=== PATIENT | female | born 1965 | race Caucasian/White ===

== ENCOUNTER → 2018-04-13 | Day surgery (SDC) | payer BC ==
[~2018-04-13] MED LIST: ALFUZOSIN HCL10 MG PO; ATORVASTATIN CA10 MG PO; GLIMEPIRIDE2 MG PO; INSULIN REGULAR, HUMAN 100 UNIT/1 ML 3ML VIAL ONE; METFORMIN HCL1000 M1 PO; PROPOFOL IV EMULSION 10 MG/ML 50 ML VIAL ONE; SLOW RELEASE IRON PO; VITAMIN D3 PO; WOMEN'S DAILY1 EACH PO
--- OUTSIDE RECORDS SUMMARY | 2018-04-13 08:31 | XMS REPORT | Summary of Care ---
Author Author [facility] Organization [facility] Address Unknown Phone Unavailable Encounter NENA Leiva(LAUREN) [id number] Date(s): 12/04/14 - 12/04/14 [facility] [address] [place] [address]- Discharge Diagnosis: Closed high fibular trimalleolar fracture of ankle Discharge Disposition: Home Attending Physician: Jaime Gonzalez MD Vital Signs Most recent to 1 2 oldest [Reference Range]: Height 160.02 cm (12/04/14 12:35 AM) Most recent to 1 2 oldest [Reference Range]: Temperature Oral 97.8 DegF 97.8 DegF [96.4-99.1 DegF] (12/04/14 2:46 AM) (12/04/14 12:35 AM) Most recent to 1 2 oldest [Reference Range]: Blood Pressure 110/69 mmHg 109/73 mmHg [90-140/60-90 mmHg] (12/04/14 2:46 AM) (12/04/14 12:35 AM) Most recent to 1 2 oldest [Reference Range]: Respiratory Rate 21 BRMIN 48 BRMIN [14-20 BRMIN] *HI* *HI* (12/04/14 2:46 AM) (12/04/14 12:35 AM) Most recent to 1 2 oldest [Reference Range]: Peripheral Pulse 76 bpm 76 bpm Rate [60-100 bpm] (12/04/14 2:46 AM) (12/04/14 12:35 AM) Most recent to 1 2 oldest [Reference Range]: Weight 77.273 kg (12/04/14 12:35 AM) Most recent to 1 2 oldest [Reference Range]: Body Mass Index 30.18 m2 (12/04/14 12:35 AM) Problem List Condition Effective Dates Status Health Status Informant Cervical Resolved cancer(Confirmed) Diabetes(Confirmed) Resolved Hyperlipidemia(Confi Resolved rmed) Allergies, Adverse Reactions, Alerts Substance Reaction Severity Status NKDA Active Medications Hall 5/325 oral tablet 1 tab, Route: PO, Drug Form: TAB, Dosing Weight 77.273, kg, ONCE, Start date: 0:40:00, Stop date: 12/04/14 0:40:00 Notes: (Same as: Hall 325/5) Do not exceed 4gm/day of acetaminophen. Start Date: 12/04/14 Stop Date: 12/04/14 Status: Completed Results No data available for this section Immunizations No data available for this section Procedures Procedure Date Related Diagnosis Body Site Cancer chemotherapy regimen Contact radiation therapy procedure TL - Tubal ligation Social History Social History Type Response Substance Abuse Use: None. Sexual Sexually active: No. Exercise Exercise duration: 0. Employment/School Status: Employed. Alcohol Never Smoking Status Never smoker; Exposure to Tobacco Smoke None; Cigarette Smoking Last 365 Days No; Reg Smoking Cessation Counseling No Assessment and Plan No data available for this section
--- OUTSIDE RECORDS SUMMARY | 2018-04-13 08:31 | XMS REPORT | Continuity of Care Document ---
Author Author [facility] Interface Address Unknown Phone Unavailable Problems Problem Status Onset Date Classification Date Reported Comments Source EYE PAIN OR INJURY Active 11/09/[address] [facility] ANEMIA, HEMATURIA ,SHORTNESS OF BREATH, Active 10/02/[address] [facility] ANEMIA, SHORTNESS OF BREATH, HEMATURIA Active 10/02/[address] [facility] BLOOD IN URINE Active 10/02/[address] [facility] Discharge Diagnosis: Closed high fibular trimalleolar fracture of ankle 12/04/2014 12/07/[address] [facility] LEFT ANKLE INJURY Active 12/04/[address] [facility] Cervical cancer Resolved Problem 10/09/[address] [facility] Diabetes Resolved Problem 10/09/[address] [facility] Hyperlipidemia Resolved Problem 10/09/[address] [facility] Type II diabetes mellitus poorly controlled Active Problem 10/09/[address] [facility] ANEMIA, UNSPECIFIED Active [facility] HEMATURIA, UNSPECIFIED Active [facility] TYPE 2 DIABETES MELLITUS WITH HYPERGLYCE Active [facility] SHORTNESS OF BREATH Active [facility] Medications Medication Details Route Status Patient Instructions Ordering Provider Order Date Source Slow Release Iron 45 mg oral tablet, extended release 45 mg=1 tab, PO, Daily, # 30 tab, 1 Refill(s), given to patient Active 10/06/2017 [facility] Cefuroxime 500 MG Oral Tablet [Ceftin] 500 mg=1 tab, PO, BID, X 10 day, # 20 tab, 0 Refill(s), given to patient Active 10/06/2017 [facility] atorvastatin 10 mg oral tablet 10 mg=1 tab, PO, Bedtime, # 30 tab, 0 Refill(s), given to patient Active 10/06/2017 [facility] Metformin hydrochloride 1000 MG Oral Tablet 1,000 mg=1 tab, PO, BID-Meals, # 6 tab, 0 Refill(s), given to patient Active 10/06/[address] [facility] Insulin Lispro 10 unit, 0.1 mL, Route: SUB-Q, Drug form: SOLN, TID-Before Meals, Dosing Weight 79.545, kg, PRN Blood Glucose Results, Start date: 10/04/17 23:22:00 CDT, Duration: 30 day, Stop date: 11/03/17 23:21:0 0 CDTNotes: (Same as: Humalog ) Roll in palms of hands gently; Do not shake `vigorously. "Single Patient Use Only " WASTE: F/P - Black; E - Municipal Trash Bin Stable for 28 days at room temperature. Expires in days from Date No Longer Active 10/05/[address] [facility] ketAMINE (ANES) Route: IV, Drug form: INJ, ONCE, Stop date: 10/04/17 9:42:00 CDT Inactive 10/04/[address] [facility] ondansetron (ANES) Route: IV, Drug form: INJ, ONCE, Stop date: 10/04/17 9:42:00 CDT Inactive 10/04/[address] [facility] propofol (ANES) Route: IV, Drug form: INJ, ONCE, Stop date: 10/04/17 9:37:00 CDT Inactive 10/04/[address] [facility] fentaNYL (ANES) Route: IV, Drug form: INJ, ONCE, Stop date: 10/04/17 9:37:00 CDT Inactive 10/04/[address] [facility] midazolam (ANES) Route: IV, Drug form: SOLN, ONCE, Stop date: 10/04/17 9:37:00 CDT Inactive 10/04/[address] [facility] Sodium Chloride 0.9% IV (ANES) 1000 mL Route: IV, Total Volume: 1,000, Start date: 10/04/17 8:48:00 CDT, Stop date: 10/04/17 9:48:00 CDT Inactive 10/04/[address] [facility] Ceftriaxone 1 gm, Route: IVP, [id number], Dosing Weight 73.182, kg, Start date: 10/04/17 3:00:00 CDT, Duration: 7 day, Stop date: 10/10/17 3:00:00 CDT, ABX Indication: Urinary Tract InfectionNotes: (Same As: Rocephin). Use with 100 mL NS and infuse over 30 min MEDICATION WASTE Product Size: 1000 mg Product Wasted: ___ mg No Longer Active 10/04/[address] [facility] Insulin Glargine 100 UNT/ML Injectable Solution [Lantus] 20 unit, 0.2 mL, Route: SUB-Q, Drug form: SOLN, Bedtime, Dosing Weight 73.182, kg, Start date: 10/03/17 21:00:00 CDT, Duration: 30 day, Stop date: 11/01/17 21:00:00 CDTNotes: (Same as: Lantus) Do not hold insulin without contacting prescriber WASTE: F/P - Black; E - Municipal Trash Bin "single patient use only" Inactive 10/04/[address] [facility] Lovastatin 10 mg, Route: PO, Drug form: TAB, Bedtime, Dosing Weight 73.182, kg, Start date: 10/03/17 21:00:00 CDT, Duration: 30 day, Stop date: 11/01/17 21:00:00 CDT Inactive 10/04/[address] [facility] Lipitor 10 mg, 1 tab, Route: PO, Drug form: TAB, Bedtime, Start date: 10/03/17 21:00:00 CDT, Duration: 30 day, Stop date: 11/01/17 21:00:00 CDTNotes: (Same As: Lipitor) No Longer Active 10/04/[address] [facility] lovastatin 10 mg oral tablet 10 mg=1 tab, PO, Bedtime, # 30 tab, 0 Refill(s) No Longer Active 10/03/[address] [facility] Metformin hydrochloride 1000 MG Oral Tablet 1,000 mg=1 tab, PO, BID-Meals, # 30 tab, 0 Refill(s) No Longer Active 10/03/[address] [facility] Sodium Chloride 0.9% IV 250 mL, IV, 250 ml/hr, PRN, PRN Blood Transfusion, Start date: 10/03/17 9:09:00 CDT, Duration: 1, 250 ml No Longer Active 10/03/[address] [facility] Famotidine 20 MG Oral Tablet 20 mg, 1 tab, Route: PO, Drug form: TAB, BID, Dosing Weight 73.182, kg, Start date: 10/03/17 9:00:00 CDT, Duration: 30 day, Stop date: 11/01/17 17:00:00 CDTNotes: (Same as: Pepcid) No Longer Active 10/03/2017 [facility] Insulin Glargine 100 UNT/ML Injectable Solution [Lantus] 15 unit, 0.15 mL, Route: SUB-Q, Drug form: SOLN, Daily, Dosing Weight 73.182, kg, Start date: 10/03/17 9:00:00 CDT, Duration: 30 day, Stop date: 11/01/17 9:00:00 CDTNotes: (Same as: Lantus) Do not hold insulin without contacting prescriber WASTE: F/P - Black; E - [employer] Trash Bin "single patient use only" Inactive 10/03/2017 [facility] tramadol hydrochloride 50 MG Oral Tablet 50 mg, 1 tab, Route: PO, Drug form: TAB, Q6H, Dosing Weight 73.182, kg, PRN Pain Score 1-3, Start date: 10/03/17 8:53:00 CDT, Duration: 30 day, Stop date: 11/02/17 8:52:00 CDTNotes: Not to exceed 400mg/day. (Same As: Ultram) No Longer Active 10/03/2017 [facility] Acetaminophen 325 mg, 1 tab, Route: PO, Drug form: TAB, Q4H, Dosing Weight 73.182, kg, PRN Pain 1-3/Temp > 100.4 F, Start date: 10/03/17 8:53:00 CDT, Duration: 30 day, Stop date: 11/02/17 8:52:00 CDTNotes: Do not exceed 4 gm/day. (Same as: Tylenol) No Longer Active 10/03/2017 [facility] NS 1,000 mL 1,000 mL, Rate: 75 ml/hr, Infuse over: 13.3 hr, Route: IV, Dosing Weight 73.182 kg, Total Volume: 1,000, Start date: 10/03/17 8:51:00 CDT, Duration: 30 day, Stop date: 11/02/17 8:50:00 CDT, 1.81, m2 No Longer Active 10/03/2017 [facility] Insulin Lispro 1 unit, 0.01 mL, Route: SUB-Q, Drug form: SOLN, Bedtime, Dosing Weight 73.182, kg, PRN Blood Glucose Results, Start date: 10/03/17 8:48:00 CDT, Duration: 30 day, Stop date: 11/02/17 8:47:00 CDTNotes: (Same as: Humalog ) Roll in palms of hands gently; Do not shake `vigorously. "Single Patient Use Only " WASTE: F/P - Black; E - Municipal Trash Bin Stable for 28 days at room temperature. Expires in days from Date No Longer Active 10/03/[address] [facility] Glucagon 1 mg, Route: IM, Drug form: PDR/INJ, PRN, Dosing Weight 73.182, kg, PRN Blood Glucose Results, Start date: 10/03/17 8:48:00 CDT, Duration: 30 day, Stop date: 11/02/17 8:47:00 CDT No Longer Active 10/03/[address] [facility] Dextrose 50% Syringe 25 gm, 50 mL, Route: IVP, Drug Form: INJ, Dosing Weight 73.182, kg, PRN, PRN Blood Glucose Results, Start date: 10/03/17 8:48:00 CDT, Duration: 30 day, Stop date: 11/02/17 8:47:00 CDT No Longer Active 10/03/[address] [facility] Insulin Lispro 1 unit, 0.01 mL, Route: SUB-Q, Drug form: SOLN, Sliding Scale, Dosing Weight 73.182, kg, PRN Blood Glucose Results, Start date: 10/03/17 6:15:00 CDT, Duration: 30 day, Stop date: 11/02/17 6:14:00 CDT Notes: (Same as: Humalog ) Roll in palms of hands gently; Do not shake `vigorously. "Single Patient Use Only " WASTE: F/P - Black; E - Municipal Trash Bin Stable for 28 days at room temperature. Expires in days from Date Inactive 10/03/2017 [facility] Glucagon 1 mg, Route: IM, Drug form: PDR/INJ, PRN, Dosing Weight 73.182, kg, PRN Blood Glucose Results, Start date: 10/03/17 6:15:00 CDT, Duration: 30 day, Stop date: 11/02/17 6:14:00 CDT Inactive 10/03/2017 [facility] Dextrose 50% Syringe 12.5 gm, 25 mL, Route: IVP, Drug Form: INJ, Dosing Weight 73.182, kg, PRN, PRN Blood Glucose Results, Start date: 10/03/17 6:15:00 CDT, Duration: 30 day, Stop date: 11/02/17 6:14:00 CDT Inactive 10/03/2017 [facility] Ondansetron 4 mg, 2 mL, Route: IVP, Drug form: INJ, Q6H, Dosing Weight 73.182, kg, PRN Nausea & Vomiting, Start date: 10/03/17 6:04:00 CDT, Duration: 30 day, Stop date: 11/02/17 6:03:00 CDTNotes: (Same as: Kumar) MEDICATION WASTE Product Size: 4 mg Product Wasted: ___ mg No Longer Active 10/03/[address] [facility] Morphine 2 mg, 0.5 mL, Route: IVP, Drug form: SOLN, Q4H, Dosing Weight 73.182, kg, PRN Pain Score 7-10, Start date: 10/03/17 6:04:00 CDT, Duration: 30 day, Stop date: 11/02/17 6:03:00 CDTNotes: (Same as:MORPhine Sulfate) No Longer Active 10/03/[address] [facility] Docusate 100 mg, 1 cap, Route: PO, Drug form: CAP, BID, Dosing Weight 73.182, kg, PRN as needed for constipation, Start date: 10/03/17 6:04:00 CDT, Duration: 30 day, Stop date: 11/02/17 6:03:00 CDTNotes: (Same as: Colace) (Do Not Crush) No Longer Active 10/03/2017 [facility] Acetaminophen 325 MG / Hydrocodone Bitartrate 5 MG Oral Tablet 1 tab, Route: PO, Drug Form: TAB, Dosing Weight 73.182, kg, Q4H, PRN Pain Score 4-6, Start date: 10/03/17 6:04:00 CDT, Duration: 30 day, Stop date: 11/02/17 6:03:00 CDTNotes: (Same as: [place] 325/5) Do not exceed 4gm/day of acetaminophen. Inactive 10/03/2017 [facility] Acetaminophen 650 mg, 2 tab, Route: PO, Drug form: TAB, Q4H, Dosing Weight 73.182, kg, PRN Pain 1-3/Temp > 100.4 F, Start date: 10/03/17 6:04:00 CDT, Duration: 30 day, Stop date: 11/02/17 6:03:00 CDTNotes: Do not exceed 4 gm/day. (Same as: Tylenol) Inactive 10/03/[address] [facility] Omnipaque 300 100 mL, Route: IV, Dosing Weight 73.182, kg, ONCE, Start date: 10/03/17 3:10:00 CDT, Stop date: 10/03/17 3:10:00 CDT Inactive 10/03/2017 [facility] Rocephin 1 gm, Route: IVPB, Drug form: PDR/INJ, ONCE, Dosing Weight 73.182, kg, Priority: STAT, Start date: 10/03/17 3:04:00 CDT, Stop date: 10/03/17 3:04:00 CDT, ABX Indication: Urinary Tract Infection Inactive 10/03/[address] [facility] Saline Flush 0.9% 10 mL, Route: IVP, Drug Form: INJ, Dosing Weight 73.182, kg, PRN, PRN Line Flush, Start date: 10/03/17 0:36:00 CDT, Duration: 30 day, Stop date: 11/02/17 0:35:00 CDTNotes: Same as: BD Posiflush Sterile No Longer Active 10/03/2017 [facility] Acetaminophen 325 MG / Hydrocodone Bitartrate 5 MG Oral Tablet [[place] 5/325] 1 tab, Route: PO, Drug Form: TAB, Dosing Weight 77.273, kg, ONCE, Start date: 12/04/14 0:40:00, Stop date: 12/04/14 0:40:00Notes: (Same as: [place] 325/5) Do not exceed 4gm/day of acetaminophen. Inactive 12/04/2014 [facility] Allergies, Adverse Reactions, Alerts Substance Category Reaction Severity Reaction type Status Date Reported Comments Source Immunizations Immunization Date Given Site Status Last Updated Comments Source Results Order Name Results Value Reference Range Date Interpretation Comments Source HEMATOLOGY RBC 2.34 M/CMM 4.20 - 5.40 10/06/[address] [facility] HEMATOLOGY WBC 3.0 K/CMM 3.7 - 10.4 10/06/[address] [facility] HEMATOLOGY MCV 87.2 fL 80.0 - 98.0 10/06/[address] [facility] HEMATOLOGY MCHC 33.1 g/dL 32.0 - 36.0 10/06/[address] [facility] HEMATOLOGY Hct 20.4 % 36.0 - 48.0 10/06/[address] [facility] HEMATOLOGY Hgb 6.8 g/dL 12.0 - 16.0 10/06/2017 Result Comment: Critical Result(s) called to Danilo Acuna at 10/06/2017 04:42 byJW . Read back OK. [facility] HEMATOLOGY MCH 28.8 pg 27.0 - 31.0 10/06/[address] [facility] HEMATOLOGY RDW 15.1 % 11.5 - 14.5 10/06/[address] [facility] HEMATOLOGY MPV 10.0 fL 7.4 - 10.4 10/06/[address] [facility] HEMATOLOGY Platelet 92 K/CMM 133 - 450 10/06/[address] [facility] HEMATOLOGY Segs 63.8 % 45.0 - 75.0 10/06/[address] [facility] HEMATOLOGY Basophils 0.4 % 0.0 - 1.0 10/06/[address] [facility] HEMATOLOGY Eosinophils 1.4 % 0.0 - 4.0 10/06/[address] [facility] HEMATOLOGY Monocytes 6.9 % 2.0 - 12.0 10/06/[address] [facility] HEMATOLOGY Segs-Bands # 1.9 K/CMM 1.5 - 8.1 10/06/[address] [facility] HEMATOLOGY Lymphocytes 27.5 % 20.0 - 40.0 10/06/[address] [facility] HEMATOLOGY Monocytes # 0.2 K/CMM 0.0 - 0.8 10/06/[address] [facility] HEMATOLOGY Lymphocytes # 0.8 K/CMM 1.0 - 5.5 10/06/[address] [facility] HEMATOLOGY Hct 21.6 % 36.0 - 48.0 10/05/[address] [facility] HEMATOLOGY Hgb 7.1 g/dL 12.0 - 16.0 10/05/[address] [facility] CARDIAC ENZYMES BNP 40 pg/mL <=100 pg/mL 10/05/[address] [facility] CHEM PANEL Procalcitonin Lvl 0.06 ng/mL 0.00 - 0.10 10/05/[address] [facility] CHEM PANEL Lactic Acid Lvl 1.7 mMol/L 0.5 - 2.2 10/05/[address] [facility] CHEM PANEL eGFR 96 mL/min/1.73m2 10/05/2017 Result Comment: The eGFR is calculated using the CKD-EPI formula. In most young, healthy individuals the eGFR will be >90 mL/min/1.73m2. The eGFR declines with age. An eGFR of 60-89 may be normal in some populations, particularly the elderly, for whom the CKD-EPI formula has not been extensively validated. Use of the eGFR is not recommended in the following populations: Individuals with unstable creatinine concentrations, including patients and those with serious co-morbid conditions. Patients with extremes in muscle mass or diet. The data above are obtained from the National Kidney Disease Education Program (NKDEP) which additionally recommends that when the eGFR is used in patients with extremes of body mass index for purposes of drug dosing, the eGFR should be multiplied by the estimated BMI. [facility] CHEM PANEL BUN 8 mg/dL 7 - 22 10/05/[address] [facility] CHEM PANEL Glucose Lvl 187 mg/dL 70 - 99 10/05/[address] [facility] CHEM PANEL AGAP 9.8 meq/L 10.0 - 20.0 10/05/[address] [facility] CHEM PANEL Sodium Lvl 144 meq/L 135 - 145 10/05/[address] [facility] CHEM PANEL Calcium Lvl 7.4 mg/dL 8.5 - 10.5 10/05/[address] [facility] CHEM PANEL Chloride Lvl 111 meq/L 95 - 109 10/05/[address] [facility] CHEM PANEL Potassium Lvl 3.8 meq/L 3.5 - 5.1 10/05/[address] [facility] CHEM PANEL CO2 27 meq/L 24 - 32 10/05/[address] [facility] CHEM PANEL Creatinine Lvl 0.73 mg/dL 0.50 - 1.40 10/05/[address] [facility] CHEM PANEL Uric Acid 3.8 mg/dL 2.5 - 7.0 10/05/[address] [facility] HEMATOLOGY Basophils 0.4 % 0.0 - 1.0 10/05/[address] [facility] HEMATOLOGY Segs-Bands # 2.1 K/CMM 1.5 - 8.1 10/05/[address] [facility] HEMATOLOGY Lymphocytes # 0.9 K/CMM 1.0 - 5.5 10/05/[address] [facility] HEMATOLOGY Monocytes # 0.2 K/CMM 0.0 - 0.8 10/05/[address] [facility] HEMATOLOGY Eosinophils 1.5 % 0.0 - 4.0 10/05/[address] [facility] HEMATOLOGY Segs 63.0 % 45.0 - 75.0 10/05/[address] [facility] HEMATOLOGY Monocytes 6.9 % 2.0 - 12.0 10/05/[address] [facility] HEMATOLOGY Lymphocytes 28.2 % 20.0 - 40.0 10/05/[address] [facility] HEMATOLOGY RBC 2.39 M/CMM 4.20 - 5.40 10/05/[address] [facility] HEMATOLOGY WBC 3.3 K/CMM 3.7 - 10.4 10/05/[address] [facility] HEMATOLOGY Hct 20.6 % 36.0 - 48.0 10/05/[address] [facility] HEMATOLOGY Hgb 6.9 g/dL 12.0 - 16.0 10/05/2017 Result Comment: Critical Result(s) called to Tom Gee at 10/05/2017 05:41 byJW . Read back OK. [facility] HEMATOLOGY MCV 86.2 fL 80.0 - 98.0 10/05/[address] [facility] HEMATOLOGY MCHC 33.4 g/dL 32.0 - 36.0 10/05/[address] [facility] HEMATOLOGY MCH 28.8 pg 27.0 - 31.0 10/05/[address] [facility] HEMATOLOGY Platelet 92 K/CMM 133 - 450 10/05/[address] [facility] HEMATOLOGY RDW 14.8 % 11.5 - 14.5 10/05/[address] [facility] HEMATOLOGY MPV 9.4 fL 7.4 - 10.4 10/05/[address] [facility] HEMATOLOGY PTT 26.4 s 22.9 - 35.8 10/05/[address] [facility] HEMATOLOGY INR 1.16 0.85 - 1.17 10/05/[address] [facility] HEMATOLOGY PT 14.9 s 12.0 - 14.7 10/05/[address] [facility] IMMUNOLOGY C-REACTIVE PROTEIN 7.9 mg/L <=2.9 mg/L 10/05/[address] [facility] IMMUNOLOGY HIV Ag/Ab 4th Gen Negative *NA* (10/05/17 5:10 AM) Negative 10/05/[address] [facility] IMMUNOLOGY Hep C Ab Negative *NA* (10/05/17 5:10 AM) 10/05/[address] [facility] IMMUNOLOGY Hep B Core IgM Negative *NA* (10/05/17 5:10 AM) Negative 10/05/[address] [facility] IMMUNOLOGY Hep Bs Ag Negative *NA* (10/05/17 5:10 AM) Negative 10/05/[address] [facility] IMMUNOLOGY Hep A IgM Negative *NA* (10/05/17 5:10 AM) Negative 10/05/[address] [facility] LIPIDS VLDL 25 10/05/[address] [facility] LIPIDS LDL (Calculated) 63 mg/dL <=99 mg/dL 10/05/[address] [facility] LIPIDS Trig 123 mg/dL <=149 mg/dL 10/05/[address] [facility] LIPIDS Chol 110 mg/dL <=199 mg/dL 10/05/[address] [facility] LIPIDS HDL 22 mg/dL >=61 mg/dL 10/05/[address] [facility] LIPIDS CHD Risk 5.00 3.90 - 5.80 10/05/[address] [facility] SPECIAL CHEMISTRY Hgb A1C 6.3 % <=5.6 % 10/05/[address] [facility] TUMOR MARKERS AFP 4.2 ng/mL 0.0 - 11.0 10/05/[address] [facility] CHEM PANEL Magnesium Lvl 1.8 mg/dL 1.8 - 2.4 10/04/[address] [facility] ELECTROLYTES AGAP 11.6 meq/L 10.0 - 20.0 10/04/[address] [facility] ELECTROLYTES eGFR 102 mL/min/1.73m2 10/04/2017 Result Comment: The eGFR is calculated using the CKD-EPI formula. In most young, healthy individuals the eGFR will be >90 mL/min/1.73m2. The eGFR declines with age. An eGFR of 60-89 may be normal in some populations, particularly the elderly, for whom the CKD-EPI formula has not been extensively validated. Use of the eGFR is not recommended in the following populations: Individuals with unstable creatinine concentrations, including patients and those with serious co-morbid conditions. Patients with extremes in muscle mass or diet. The data above are obtained from the National Kidney Disease Education Program (NKDEP) which additionally recommends that when the eGFR is used in patients with extremes of body mass index for purposes of drug dosing, the eGFR should be multiplied by the estimated BMI. [facility] ELECTROLYTES CO2 24 meq/L 24 - 32 10/04/[address] [facility] ELECTROLYTES Chloride Lvl 110 meq/L 95 - 109 10/04/[address] [facility] ELECTROLYTES Calcium Lvl 7.5 mg/dL 8.5 - 10.5 10/04/[address] [facility] ELECTROLYTES Creatinine Lvl 0.66 mg/dL 0.50 - 1.40 10/04/[address] [facility] ELECTROLYTES Sodium Lvl 142 meq/L 135 - 145 10/04/[address] [facility] ELECTROLYTES Glucose Lvl 252 mg/dL 70 - 99 10/04/[address] [facility] ELECTROLYTES Potassium Lvl 3.6 meq/L 3.5 - 5.1 10/04/[address] [facility] ELECTROLYTES BUN 8 mg/dL 7 - 22 10/04/[address] [facility] HEMATOLOGY Lymphocytes # 1.1 K/CMM 1.0 - 5.5 10/04/[address] [facility] HEMATOLOGY Segs-Bands # 2.2 K/CMM 1.5 - 8.1 10/04/[address] [facility] HEMATOLOGY Monocytes # 0.3 K/CMM 0.0 - 0.8 10/04/[address] [facility] HEMATOLOGY Segs 60.7 % 45.0 - 75.0 10/04/[address] [facility] HEMATOLOGY Monocytes 6.9 % 2.0 - 12.0 10/04/[address] [facility] HEMATOLOGY Lymphocytes 30.6 % 20.0 - 40.0 10/04/[address] [facility] HEMATOLOGY Eosinophils 1.2 % 0.0 - 4.0 10/04/[address] [facility] HEMATOLOGY Basophils 0.6 % 0.0 - 1.0 10/04/[address] [facility] HEMATOLOGY Platelet 106 K/CMM 133 - 450 10/04/[address] [facility] HEMATOLOGY RDW 15.0 % 11.5 - 14.5 10/04/[address] [facility] HEMATOLOGY MPV 9.7 fL 7.4 - 10.4 10/04/[address] [facility] HEMATOLOGY WBC 3.6 K/CMM 3.7 - 10.4 10/04/[address] [facility] HEMATOLOGY MCHC 33.7 g/dL 32.0 - 36.0 10/04/[address] [facility] HEMATOLOGY MCH 28.8 pg 27.0 - 31.0 10/04/2017 [facility] HEMATOLOGY RBC 2.50 M/CMM 4.20 - 5.40 10/04/[address] [facility] HEMATOLOGY MCV 85.6 fL 80.0 - 98.0 10/04/[address] [facility] URINE AND STOOL UA Mucus Moderate /LPF None Seen /LPF 10/04/[address] [facility] URINE AND STOOL UA RBC >182 /HPF 0 - 2 10/04/[address] [facility] URINE AND STOOL UA Bacteria Few /HPF None Seen /HPF 10/04/[address] [facility] URINE AND STOOL UA WBC 6-10 /HPF 0 - 5 10/04/[address] [facility] URINE AND STOOL UA Glucose 150 mg/dL 10/04/[address] [facility] URINE AND STOOL UA Urobilinogen <=1.0 mg/dL 0.1 - 1.0 10/04/[address] [facility] URINE AND STOOL UA Ketones Negative 10/04/[address] [facility] URINE AND STOOL UA Sq Epi None Seen 10/04/[address] [facility] URINE AND STOOL UA Color Anna *ABN* (10/03/17 10:57 PM) Yellow 10/04/[address] [facility] URINE AND STOOL UA Protein >=300 mg/dL Negative mg/dL 10/04/[address] [facility] [facility] URINE AND STOOL UA Spec Grav 1.016 <=1.030 10/04/[address] [facility] URINE AND STOOL UA pH 7.0 5.0 - 8.0 10/04/[address] [facility] URINE AND STOOL UA Turbidity Marked *ABN* (10/03/17 10:57 PM) Clear 10/04/[address] [facility] URINE AND STOOL UA Leuk Est Negative (10/03/17 10:57 PM) Negative 10/04/[address] [facility] URINE AND STOOL UA Blood Large *ABN* (10/03/17 10:57 PM) Negative 10/04/[address] [facility] URINE AND STOOL UA Nitrite Negative (10/03/17 10:57 PM) Negative 10/04/[address] [facility] URINE AND STOOL UA Bili Negative *NA* (10/03/17 10:57 PM) Negative 10/04/[address] [facility] BLOOD BANK RESULTS RBC product Product available 1 (10/03/17 7:55 PM) 10/04/2017 Result Comment: 10/03/2017 20:44 [id number] Called to SHANNA Dorantes at 10/03/2017 20:[address] [facility] ANEMIA STUDY Folate Lvl 17.6 ng/mL >=3.0 ng/mL 10/03/[address] [facility] HEMATOLOGY PTT 26.7 s 22.9 - 35.8 10/03/[address] [facility] HEMATOLOGY INR 1.11 0.85 - 1.17 10/03/[address] [facility] HEMATOLOGY PT 14.3 s 12.0 - 14.7 10/03/[address] [facility] BLOOD BANK RESULTS ABO/Rh A POS 10/03/[address] [facility] BLOOD BANK RESULTS Antibody Scrn Negative (10/03/17 2:16 AM) 10/03/[address] [facility] URINE AND STOOL UA RBC null 0 - 2 10/03/[address] [facility] URINE AND STOOL UA Bacteria Many /HPF None Seen /HPF 10/03/[address] [facility] URINE AND STOOL UA Urobilinogen 2.0 mg/dL 0.1 - 1.0 10/03/[address] [facility] URINE AND STOOL UA Nitrite Negative (10/03/17 2:16 AM) Negative 10/03/[address] [facility] URINE AND STOOL UA Leuk Est Negative (10/03/17 2:16 AM) Negative 10/03/[address] [facility] URINE AND STOOL UA WBC 18 /HPF 0 - 5 10/03/[address] [facility] URINE AND STOOL UA Blood Large *ABN* (10/03/17 2:16 AM) Negative 10/03/[address] [facility] URINE AND STOOL UA Sq Epi None Seen 10/03/[address] [facility] URINE AND STOOL UA Ketones Negative 10/03/[address] [facility] URINE AND STOOL UA Color Red *ABN* (10/03/17 2:16 AM) Yellow 10/03/[address] [facility] URINE AND STOOL UA Turbidity Marked *ABN* (10/03/17 2:16 AM) Clear 10/03/[address] [facility] URINE AND STOOL UA Spec Grav 1.017 <=1.030 10/03/[address] [facility] URINE AND STOOL UA Glucose 500 mg/dL Negative mg/dL 10/03/[address] [facility] URINE AND STOOL UA Bili Negative *NA* (10/03/17 2:16 AM) Negative 10/03/[address] [facility] URINE AND STOOL UA pH 6.0 5.0 - 8.0 10/03/[address] [facility] URINE AND STOOL UA Protein >=300 mg/dL Negative mg/dL 10/03/[address] [facility] Culture: Urine <10,000 CFU/mL Skin Kia 10/03/[address] [facility] BLOOD BANK RESULTS RBC product Product available 2 (10/03/17 2:07 AM) 10/03/2017 Result Comment: 10/03/2017 03:44 [id number] Called Cristian Rangel [facility] ANEMIA STUDY Ferritin Lvl 20 ng/mL 5 - 204 10/03/[address] [facility] ANEMIA STUDY % Satur Fe 5 % 12 - 57 10/03/[address] [facility] ANEMIA STUDY UIBC 397 ug/dl 110 - 370 10/03/[address] [facility] ANEMIA STUDY TIBC 419 ug/dl 228 - 428 10/03/[address] [facility] ANEMIA STUDY Iron 22 ug/dl 30 - 160 10/03/[address] [facility] ANEMIA STUDY Vitamin B12 Lvl 186 pg/mL 254 - 1320 10/03/[address] [facility] CARDIAC ENZYMES Troponin-I null 0.00 - 0.40 10/03/[address] [facility] CARDIAC ENZYMES CK MB null 0.5 - 3.6 10/03/[address] [facility] CARDIAC ENZYMES Total CK 53 unit/L 12 - 191 10/03/[address] [facility] CARDIAC ENZYMES CK MB Index null 0.0 - 2.5 10/03/[address] [facility] CHEM PANEL A/G Ratio 0.6 0.7 - 1.6 10/03/[address] [facility] CHEM PANEL AGAP 14.1 meq/L 10.0 - 20.0 10/03/[address] [facility] CHEM PANEL eGFR 76 mL/min/1.73m2 10/03/2017 Result Comment: The eGFR is calculated using the CKD-EPI formula. In most young, healthy individuals the eGFR will be >90 mL/min/1.73m2. The eGFR declines with age. An eGFR of 60-89 may be normal in some populations, particularly the elderly, for whom the CKD-EPI formula has not been extensively validated. Use of the eGFR is not recommended in the following populations: Individuals with unstable creatinine concentrations, including patients and those with serious co-morbid conditions. Patients with extremes in muscle mass or diet. The data above are obtained from the National Kidney Disease Education Program (NKDEP) which additionally recommends that when the eGFR is used in patients with extremes of body mass index for purposes of drug dosing, the eGFR should be multiplied by the estimated BMI. [facility] CHEM PANEL Globulin 3.6 g/dL 2.7 - 4.2 10/03/[address] [facility] CHEM PANEL B/C Ratio 10 6 - 25 10/03/[address] [facility] CHEM PANEL Alk Phos 96 unit/L 39 - 136 10/03/[address] [facility] CHEM PANEL Bili Total 0.4 mg/dL 0.2 - 1.3 10/03/[address] [facility] CHEM PANEL Sodium Lvl 141 meq/L 135 - 145 10/03/[address] [facility] CHEM PANEL Potassium Lvl 4.1 meq/L 3.5 - 5.1 10/03/[address] [facility] CHEM PANEL Chloride Lvl 108 meq/L 95 - 109 10/03/[address] [facility] CHEM PANEL Creatinine Lvl 0.88 mg/dL 0.50 - 1.40 10/03/[address] [facility] CHEM PANEL Total Protein 5.9 g/dL 6.4 - 8.4 10/03/[address] [facility] CHEM PANEL CO2 23 meq/L 24 - 32 10/03/[address] [facility] CHEM PANEL Albumin Lvl 2.3 g/dL 3.5 - 5.0 10/03/[address] [facility] CHEM PANEL ALT 11 unit/L 0 - 65 10/03/[address] [facility] CHEM PANEL Calcium Lvl 7.9 mg/dL 8.5 - 10.5 10/03/[address] [facility] CHEM PANEL AST 14 unit/L 0 - 37 10/03/[address] [facility] CHEM PANEL BUN 9 mg/dL 7 - 22 10/03/[address] [facility] CHEM PANEL Glucose Lvl 316 mg/dL 70 - 99 10/03/[address] [facility] HEMATOLOGY Hypochrom 1+ (10/03/17 12:42 AM) None Seen 10/03/[address] [facility] HEMATOLOGY Plt Morph Normal (10/03/17 12:42 AM) 10/03/[address] [facility] HEMATOLOGY RBC Morph Normal (10/03/17 12:42 AM) 10/03/[address] [facility] HEMATOLOGY Polychrom slight 10/03/[address] [facility] Abdomen/Pelvis w IV contrast CT Abdomen/Pelvis w IV contrast CT CT ABDOMEN AND PELVIS WITH CONTRAST DATED 10/03/2017. CLINICAL INDICATION: Hematuria. Prior history of cervical cancer. COMPARISON: None. TECHNIQUE: A CT of the abdomen and pelvis was performed using helical images from the thoracic outlet through the pubic symphysis after the intravenous administration of 100cc Omnipaque 300. The study was ordered without bowel contrast. Sagittal and coronal reconstructions were performed. CT imaging performed at this location utilizes radiation dose optimization techniques which include one or more of the following: -Automated exposure control -Adjustment of the mA and/or kV according to patient size -Use of iterative reconstruction technique CT Radiation Dose DLP 1314 mGy-cm FINDINGS: SOLID ORGANS: The liver demonstrates diffuse parenchymal heterogeneity and surface lobularity compatible with cirrhosis. No hypervascular hepatic masses are identified. The spleen is enlarged with a craniocaudal span of 15.4 cm. The splenic parenchyma enhances homogeneously. The splenic and portal veins are patent however are enlarged. No CT abnormalities of the pancreas, adrenal glands or kidneys are identified. There is no evidence of renal collecting system obstruction or calcified renal collecting system stone. Note is made of a left renal cortical cyst. BILIARY: The gallbladder is normally distended. No significant biliary ductal dilatation is detected. BOWEL: Bowel assessment is limited by the absence of bowel contrast. No small bowel dilatation is identified to suggest obstruction. The appendix is visualized and is not acutely inflamed. A couple of small sigmoid diverticula are identified without CT evidence of acute diverticulitis. PERITONEUM: No free intraperitoneal air or significant free intraperitoneal fluid. RETROPERITONEUM: The abdominal aorta enhances normally without evidence of aneurysm or dissection. No retroperitoneal mass or adenopathy. PELVIS: The uterine lumen is distended and contains a fluid/fluid level. No gross abnormalities of the ovaries are identified. The bladder wall appears thickened for a degree of bladder distention. Radiodense material within the dependent portion the bladder likely represents blood products given the history of hematuria. Injection of the presacral fat is noted and likely post therapeutic given the history of radiation therapy. LOWER CHEST: The lung bases appear clear of acute disease. ADDITIONAL COMMENTS: None. IMPRESSION: 1. CT findings compatible with cirrhosis of the liver. The accompanying finding of splenomegaly suggests portal hypertension. 2. The uterine lumen is distended and contains a fluid/fluid level. Given the history of cervical cancer, this finding could be the result of cervical stenosis with retained menstrual fluid. 3. The bladder wall appears thickened for the degree of bladder distention. The differential diagnosis would include cystitis, post radiation change and uroepithelial neoplasm. Again, the radiodense material within the dependent portion the bladder lumen likely represents blood products given the history of hematuria. SL:131 10/03/2017 - - Read by: Blas Barrera MD Dictated Date/time: 10/03/17 03:37 Electronically Signed by: Blas Barrera MD 10/03/17 03:49 FINAL REPORT [facility] Chest 1view DX Chest 1view DX Clinical Indication: - chest pain; Comparison: FINDINGS: The cardiomediastinal silhouette is normal in size. No significant pleural effusions are seen. The bony structures are intact. No evidence for pneumothorax. IMPRESSION: 1. No acute disease in the chest. 10/03/2017 - - Read by: Felix العراقي MD Dictated Date/time: 10/03/17 01:04 Electronically Signed by: Felix العراقي MD 10/03/17 01:04 FINAL REPORT [facility] Ankle 3 views DX Ankle 3 views DX LEFT ANKLE, 3 VIEWS. INDICATION: Left ankle pain post fall. There is a transverse fracture of the medial malleolus, a long vertical fracture of the posterior malleolus and a comminuted fracture of the distal fibula approximately 6 cm proximal to the ankle joint. There is slight lateral displacement of the talus with respect to the tibial plafond. Moderate size plantar calcaneal spur is noted. IMPRESSION: Trimalleolar fracture subluxation. SL: 12 12/04/2014 - - Read by: Carmelo Roy MD Dictated Date/time: 12/04/14 01:20 Electronically Signed by: Carmelo Roy MD 12/04/14 01:23 FINAL REPORT [facility] Vital Signs Vital Sign Value Date Comments Source Temperature Oral (F) 98 F 10/07/2017 [facility] Respitory Rate 16 10/07/2017 [facility] Heart Rate 76 10/07/2017 [facility] Systolic (mm Hg) 129 10/07/2017 [facility] Diastolic (mm Hg) 79 10/07/2017 [facility] Systolic (mm Hg) 107 10/06/2017 [facility] Diastolic (mm Hg) 78 10/06/2017 [facility] Temperature Oral (F) 98.7 F 10/06/2017 [facility] Respitory Rate 18 10/06/2017 [facility] Heart Rate 72 10/06/2017 [facility] Systolic (mm Hg) 107 10/06/2017 [facility] Diastolic (mm Hg) 66 10/06/2017 [facility] Respitory Rate 18 10/06/2017 [facility] Heart Rate 69 10/06/2017 [facility] Temperature Oral (F) 98.3 F 10/06/2017 [facility] Height 157.48 cm 10/04/2017 [facility] BMI Calculated 32.07 10/04/2017 [facility] Weight 79.545 10/04/2017 [facility] BMI Calculated 29.51 10/03/2017 [facility] Height 157.48 cm 10/03/2017 [facility] Weight 73.182 10/03/2017 [facility] Systolic (mm Hg) 110 12/04/2014 [facility] Diastolic (mm Hg) 69 12/04/2014 [facility] Respitory Rate 21 12/04/2014 [facility] Temperature Oral (F) 97.8 F 12/04/2014 [facility] Heart Rate 76 12/04/2014 [facility] Weight 77.273 12/04/2014 [facility] Temperature Oral (F) 97.8 F 12/04/2014 [facility] Respitory Rate 48 12/04/2014 [facility] Height 160.02 cm 12/04/2014 [facility] Heart Rate 76 12/04/2014 [facility] Systolic (mm Hg) 109 12/04/2014 [facility] Diastolic (mm Hg) 73 12/04/2014 [facility] BMI Calculated 30.18 12/04/[address] [facility] Encounters Location Location Details Encounter Type Encounter Number Reason For Visit Attending Provider ADM Date DC Date Status Source [facility] [id number] Jaime Gonzalez 12/04/2014 12/04/2014 [facility] Inpatient [id number] Dawson Fausti 10/03/2017 10/07/[address] [facility] Outpatient [id number] BEATRIZ MONTENEGRO 10/27/2017 Active [facility] Outpatient [id number] BEATRIZ MONTENEGRO 12/04/2017 Active [facility] Outpatient [id number] BEATRIZ MONTENEGRO 04/02/2018 Active [facility] Procedures Procedure Code Date Perfomer Comments Source TL - Tubal ligation [id number] 03/16/[address] [facility] Cancer chemotherapy regimen [id number] [facility] Contact radiation therapy procedure [id number] [facility] TL - Tubal ligation [id number] [facility] Cancer chemotherapy regimen<sup>1</sup> [id number] [facility]
--- OUTSIDE RECORDS SUMMARY | 2018-04-13 08:32 | XMS REPORT | Summary of Care ---
Author Author [facility] Organization [facility] Address Unknown Phone Unavailable Encounter [facility](LAUREN) [id number] Date(s): 10/02/17 - 10/06/17 [facility] [address] [place] [address]- Discharge Disposition: Home or Self Care Attending Physician: Dawson Pérez MD Admitting Physician: Dawson Pérez MD Vital Signs 1 2 3 Most recent to oldest [Reference Range]: 157.48 cm (10/03/17 10:44 PM) 157.48 cm (10/02/17 11:58 PM) Height 98 DegF (10/06/17 7:02 PM) 98.7 DegF (10/06/17 4:26 PM) 98.3 DegF (10/06/17 11:00 AM) Temperature Oral [96.4-99.1 DegF] 129/79 mmHg (10/06/17 7:02 PM) 107/78 mmHg (10/06/17 4:26 PM) 107/66 mmHg (10/06/17 11:00 AM) Blood Pressure [90-140/60-90 mmHg] 16 BRMIN (10/06/17 7:02 PM) 18 BRMIN (10/06/17 4:26 PM) 18 BRMIN (10/06/17 11:00 AM) Respiratory Rate [14-20 BRMIN] 76 bpm (10/06/17 7:02 PM) 72 bpm (10/06/17 4:26 PM) 69 bpm (10/06/17 11:00 AM) Peripheral Pulse Rate [60-100 bpm] 79.545 kg (10/03/17 10:44 PM) 73.182 kg (10/02/17 11:58 PM) Weight 32.07 m2 (10/03/17 10:44 PM) 29.51 m2 (10/02/17 11:58 PM) Body Mass Index Problem List Condition Effective Dates Status Health Status Informant Cervical Resolved cancer(Confirmed) Diabetes(Confirmed) Resolved Hyperlipidemia(Confi Resolved rmed) Type II diabetes Active mellitus poorly controlled(Confirmed ) Allergies, Adverse Reactions, Alerts Substance Reaction Severity Status NKDA Active Medications acetaminophen 650 mg, 2 tab, Route: PO, Drug form: TAB, Q4H, Dosing Weight 73.182, kg, PRN Thierry n 1-3/Temp > 100.4 F, Start date: 10/03/17 6:04:00 CDT, Duration: 30 day, Stop date: 11/02/17 6:03:00 CDT Notes: Do not exceed 4 gm/day. (Same as: Tylenol) Start Date: 10/03/17 Stop Date: 10/03/17 Status: Discontinued acetaminophen 325 mg, 1 tab, Route: PO, Drug form: TAB, Q4H, Dosing Weight 73.182, kg, PRN Thierry n 1-3/Temp > 100.4 F, Start date: 10/03/17 8:53:00 CDT, Duration: 30 day, Stop date: 11/02/17 8:52:00 CDT Notes: Do not exceed 4 gm/day. (Same as: Tylenol) Start Date: 10/03/17 Stop Date: 10/06/17 Status: Discontinued acetaminophen-hydrocodone 325 mg-5 mg oral tablet 1 tab, Route: PO, Drug Form: TAB, Dosing Weight 73.182, kg, Q4H, PRN Pain Score 4-6, Start date: 10/03/17 6:04:00 CDT, Duration: 30 day, Stop date: 11/02/17 6:0 3:00 CDT Notes: (Same as: Shedd 325/5) Do not exceed 4gm/day of acetaminophen. Start Date: 10/03/17 Stop Date: 10/03/17 Status: Discontinued atorvastatin 10 mg oral tablet 10 mg=1 tab, PO, Bedtime, # 30 tab, 0 Refill(s), given to patient Start Date: 10/06/17 Status: Ordered Ceftin 500 mg oral tablet 500 mg=1 tab, PO, BID, X 10 day, # 20 tab, 0 Refill(s), given to patient Start Date: 10/06/17 Stop Date: 10/16/17 Status: Ordered cefTRIAXone + sterile water 10 mL 1 gm, Route: IVP, [id number], Dosing Weight 73.182, kg, Start date: 10/04/17 3:00:0 0 CDT, Duration: 7 day, Stop date: 10/10/17 3:00:00 CDT, ABX Indication: Urinary Tract Infection Notes: (Same As: Rocephin).Use with 100 mL NS and infuse over 30 min MEDICA TION WASTE Product Size: 1000 mgProduct Wasted: ___ mg Start Date: 10/04/17 Stop Date: 10/06/17 Status: Discontinued Dextrose 50% Syringe 12.5 gm, 25 mL, Route: IVP, Drug Form: INJ, Dosing Weight 73.182, kg, PRN, PRN B lood Glucose Results, Start date: 10/03/17 6:15:00 CDT, Duration: 30 day, Stop d ate: 11/02/17 6:14:00 CDT Start Date: 10/03/17 Stop Date: 10/03/17 Status: Discontinued Dextrose 50% Syringe 25 gm, 50 mL, Route: IVP, Drug Form: INJ, Dosing Weight 73.182, kg, PRN, PRN Blo od Glucose Results, Start date: 10/03/17 6:15:00 CDT, Duration: 30 day, Stop alejandra e: 11/02/17 6:14:00 CDT Start Date: 10/03/17 Stop Date: 10/03/17 Status: Discontinued Dextrose 50% Syringe 25 gm, 50 mL, Route: IVP, Drug Form: INJ, Dosing Weight 73.182, kg, PRN, PRN Blo od Glucose Results, Start date: 10/03/17 8:48:00 CDT, Duration: 30 day, Stop alejandra e: 11/02/17 8:47:00 CDT Start Date: 10/03/17 Stop Date: 10/06/17 Status: Discontinued Dextrose 50% Syringe 12.5 gm, 25 mL, Route: IVP, Drug Form: INJ, Dosing Weight 73.182, kg, PRN, PRN B lood Glucose Results, Start date: 10/03/17 8:48:00 CDT, Duration: 30 day, Stop d ate: 11/02/17 8:47:00 CDT Start Date: 10/03/17 Stop Date: 10/06/17 Status: Discontinued docusate 100 mg, 1 cap, Route: PO, Drug form: CAP, BID, Dosing Weight 73.182, kg, PRN as needed for constipation, Start date: 10/03/17 6:04:00 CDT, Duration: 30 day, Sto p date: 11/02/17 6:03:00 CDT Notes: (Same as: Colace) (Do Not Crush) Start Date: 10/03/17 Stop Date: 10/06/17 Status: Discontinued famotidine 20 mg oral tablet 20 mg, 1 tab, Route: PO, Drug form: TAB, BID, Dosing Weight 73.182, kg, Start da te: 10/03/17 9:00:00 CDT, Duration: 30 day, Stop date: 11/01/17 17:00:00 CDT Notes: (Same as: Pepcid) Start Date: 10/03/17 Stop Date: 10/06/17 Status: Discontinued fentaNYL (ANES) Route: IV, Drug form: INJ, ONCE, Stop date: 10/04/17 9:37:00 CDT Start Date: 10/04/17 Stop Date: 10/04/17 Status: Completed glucagon 1 mg, Route: IM, Drug form: PDR/INJ, PRN, Dosing Weight 73.182, kg, PRN Blood Gl ucose Results, Start date: 10/03/17 6:15:00 CDT, Duration: 30 day, Stop date: 6:14:00 CDT Start Date: 10/03/17 Stop Date: 10/03/17 Status: Discontinued glucagon 1 mg, Route: IM, Drug form: PDR/INJ, PRN, Dosing Weight 73.182, kg, PRN Blood Gl ucose Results, Start date: 10/03/17 8:48:00 CDT, Duration: 30 day, Stop date: 8:47:00 CDT Start Date: 10/03/17 Stop Date: 10/06/17 Status: Discontinued insulin lispro 10 unit, 0.1 mL, Route: SUB-Q, Drug form: SOLN, TID-Before Meals, Dosing Weight 79.545, kg, PRN Blood Glucose Results, Start date: 10/04/17 23:22:00 CDT, Durati on: 30 day, Stop date: 11/03/17 23:21:00 CDT Notes: (Same as: Humalog ) Roll in palms of hands gently; Do not shake `vigorou sly. "Single Patient Use Only " WASTE: F/P - Black; E - [facility] [address] able for 28 days at room temperature.Expires in days from Da te Start Date: 10/04/17 Stop Date: 10/06/17 Status: Discontinued insulin lispro 2 unit, 0.02 mL, Route: SUB-Q, Drug form: SOLN, TID-Before Meals, Dosing Weight 79.545, kg, PRN Blood Glucose Results, Start date: 10/04/17 23:22:00 CDT, Durati on: 30 day, Stop date: 11/03/17 23:21:00 CDT Notes: (Same as: Humalog ) Roll in palms of hands gently; Do not shake `vigorou sly. "Single Patient Use Only " WASTE: F/P - Black; E - [facility] [address] able for 28 days at room temperature.Expires in days from Da te Start Date: 10/04/17 Stop Date: 10/06/17 Status: Discontinued insulin lispro 6 unit, 0.06 mL, Route: SUB-Q, Drug form: SOLN, TID-Before Meals, Dosing Weight 79.545, kg, PRN Blood Glucose Results, Start date: 10/04/17 23:22:00 CDT, Durati on: 30 day, Stop date: 11/03/17 23:21:00 CDT Notes: (Same as: Humalog ) Roll in palms of hands gently; Do not shake `vigorou sly. "Single Patient Use Only " WASTE: F/P - Black; E - [facility] [address] able for 28 days at room temperature.Expires in days from Da te Start Date: 10/04/17 Stop Date: 10/06/17 Status: Discontinued insulin lispro 4 unit, 0.04 mL, Route: SUB-Q, Drug form: SOLN, TID-Before Meals, Dosing Weight 79.545, kg, PRN Blood Glucose Results, Start date: 10/04/17 23:22:00 CDT, Durati on: 30 day, Stop date: 11/03/17 23:21:00 CDT Notes: (Same as: Humalog ) Roll in palms of hands gently; Do not shake `vigorou sly. "Single Patient Use Only " WASTE: F/P - Black; E - [facility] [address] able for 28 days at room temperature.Expires in days from Da te Start Date: 10/04/17 Stop Date: 10/06/17 Status: Discontinued insulin lispro 8 unit, 0.08 mL, Route: SUB-Q, Drug form: SOLN, TID-Before Meals, Dosing Weight 79.545, kg, PRN Blood Glucose Results, Start date: 10/04/17 23:22:00 CDT, Durati on: 30 day, Stop date: 11/03/17 23:21:00 CDT Notes: (Same as: Humalog ) Roll in palms of hands gently; Do not shake `vigorou sly. "Single Patient Use Only " WASTE: F/P - Black; E - [facility] [address] able for 28 days at room temperature.Expires in days from Da te Start Date: 10/04/17 Stop Date: 10/06/17 Status: Discontinued insulin lispro 1 unit, 0.01 mL, Route: SUB-Q, Drug form: SOLN, Sliding Scale, Dosing Weight 73. 182, kg, PRN Blood Glucose Results, Start date: 10/03/17 6:15:00 CDT, Duration: 30 day, Stop date: 11/02/17 6:14:00 CDT Notes: (Same as: Humalog ) Roll in palms of hands gently; Do not shake `vigorou sly. "Single Patient Use Only " WASTE: F/P - Black; E - [facility] [address] able for 28 days at room temperature.Expires in days from Da te Start Date: 10/03/17 Stop Date: 10/03/17 Status: Discontinued insulin lispro 2 unit, 0.02 mL, Route: SUB-Q, Drug form: SOLN, Sliding Scale, Dosing Weight 73. 182, kg, PRN Blood Glucose Results, Start date: 10/03/17 6:15:00 CDT, Duration: 30 day, Stop date: 11/02/17 6:14:00 CDT Notes: (Same as: Humalog ) Roll in palms of hands gently; Do not shake `vigorou sly. "Single Patient Use Only " WASTE: F/P - Black; E - [facility] [address] able for 28 days at room temperature.Expires in days from Da te Start Date: 10/03/17 Stop Date: 10/03/17 Status: Discontinued insulin lispro 3 unit, 0.03 mL, Route: SUB-Q, Drug form: SOLN, Sliding Scale, Dosing Weight 73. 182, kg, PRN Blood Glucose Results, Start date: 10/03/17 6:15:00 CDT, Duration: 30 day, Stop date: 11/02/17 6:14:00 CDT Notes: (Same as: Humalog ) Roll in palms of hands gently; Do not shake `vigorou sly. "Single Patient Use Only " WASTE: F/P - Black; E - [facility] [address] able for 28 days at room temperature.Expires in days from Da te Start Date: 10/03/17 Stop Date: 10/03/17 Status: Discontinued insulin lispro 4 unit, 0.04 mL, Route: SUB-Q, Drug form: SOLN, Sliding Scale, Dosing Weight 73. 182, kg, PRN Blood Glucose Results, Start date: 10/03/17 6:15:00 CDT, Duration: 30 day, Stop date: 11/02/17 6:14:00 CDT Notes: (Same as: Humalog ) Roll in palms of hands gently; Do not shake `vigorou sly. "Single Patient Use Only " WASTE: F/P - Black; E - [facility] [address] able for 28 days at room temperature.Expires in days from Da te Start Date: 10/03/17 Stop Date: 10/03/17 Status: Discontinued insulin lispro 5 unit, 0.05 mL, Route: SUB-Q, Drug form: SOLN, Sliding Scale, Dosing Weight 73. 182, kg, PRN Blood Glucose Results, Start date: 10/03/17 6:15:00 CDT, Duration: 30 day, Stop date: 11/02/17 6:14:00 CDT Notes: (Same as: Humalog ) Roll in palms of hands gently; Do not shake `vigorou sly. "Single Patient Use Only " WASTE: F/P - Black; E - [facility] [address] able for 28 days at room temperature.Expires in days from Da te Start Date: 10/03/17 Stop Date: 10/03/17 Status: Discontinued insulin lispro 1 unit, 0.01 mL, Route: SUB-Q, Drug form: SOLN, Bedtime, Dosing Weight 73.182, k g, PRN Blood Glucose Results, Start date: 10/03/17 8:48:00 CDT, Duration: 30 day , Stop date: 11/02/17 8:47:00 CDT Notes: (Same as: Humalog ) Roll in palms of hands gently; Do not shake `vigorou sly. "Single Patient Use Only " WASTE: F/P - Black; E - [facility] [address] able for 28 days at room temperature.Expires in days from Da te Start Date: 10/03/17 Stop Date: 10/06/17 Status: Discontinued insulin lispro 4 unit, 0.04 mL, Route: SUB-Q, Drug form: SOLN, Bedtime, Dosing Weight 73.182, k g, PRN Blood Glucose Results, Start date: 10/03/17 8:48:00 CDT, Duration: 30 day , Stop date: 11/02/17 8:47:00 CDT Notes: (Same as: Humalog ) Roll in palms of hands gently; Do not shake `vigorou sly. "Single Patient Use Only " WASTE: F/P - Black; E - [facility] [address] able for 28 days at room temperature.Expires in days from Da te Start Date: 10/03/17 Stop Date: 10/06/17 Status: Discontinued insulin lispro 3 unit, 0.03 mL, Route: SUB-Q, Drug form: SOLN, Bedtime, Dosing Weight 73.182, k g, PRN Blood Glucose Results, Start date: 10/03/17 8:48:00 CDT, Duration: 30 day , Stop date: 11/02/17 8:47:00 CDT Notes: (Same as: Humalog ) Roll in palms of hands gently; Do not shake `vigorou sly. "Single Patient Use Only " WASTE: F/P - Black; E - [facility] [address] able for 28 days at room temperature.Expires in days from Da te Start Date: 10/03/17 Stop Date: 10/06/17 Status: Discontinued insulin lispro 2 unit, 0.02 mL, Route: SUB-Q, Drug form: SOLN, Bedtime, Dosing Weight 73.182, k g, PRN Blood Glucose Results, Start date: 10/03/17 8:48:00 CDT, Duration: 30 day , Stop date: 11/02/17 8:47:00 CDT Notes: (Same as: Humalog ) Roll in palms of hands gently; Do not shake `vigorou sly. "Single Patient Use Only " WASTE: F/P - Black; E - [facility] [address] able for 28 days at room temperature.Expires in days from Da te Start Date: 10/03/17 Stop Date: 10/06/17 Status: Discontinued insulin lispro 1 unit, 0.01 mL, Route: SUB-Q, Drug form: SOLN, TID-Before Meals, Dosing Weight 73.182, kg, PRN Blood Glucose Results, Start date: 10/03/17 8:48:00 CDT, Duratio n: 30 day, Stop date: 11/02/17 8:47:00 CDT Notes: (Same as: Humalog ) Roll in palms of hands gently; Do not shake `vigorou sly. "Single Patient Use Only " WASTE: F/P - Black; E - [facility] [address] able for 28 days at room temperature.Expires in days from Da te Start Date: 10/03/17 Stop Date: 10/04/17 Status: Discontinued insulin lispro 4 unit, 0.04 mL, Route: SUB-Q, Drug form: SOLN, TID-Before Meals, Dosing Weight 73.182, kg, PRN Blood Glucose Results, Start date: 10/03/17 8:48:00 CDT, Duratio n: 30 day, Stop date: 11/02/17 8:47:00 CDT Notes: (Same as: Humalog ) Roll in palms of hands gently; Do not shake `vigorou sly. "Single Patient Use Only " WASTE: F/P - Black; E - [facility] [address] able for 28 days at room temperature.Expires in days from Da te Start Date: 10/03/17 Stop Date: 10/04/17 Status: Discontinued insulin lispro 5 unit, 0.05 mL, Route: SUB-Q, Drug form: SOLN, TID-Before Meals, Dosing Weight 73.182, kg, PRN Blood Glucose Results, Start date: 10/03/17 8:48:00 CDT, Duratio n: 30 day, Stop date: 11/02/17 8:47:00 CDT Notes: (Same as: Humalog ) Roll in palms of hands gently; Do not shake `vigorou sly. "Single Patient Use Only " WASTE: F/P - Black; E - [facility] [address] able for 28 days at room temperature.Expires in days from Da te Start Date: 10/03/17 Stop Date: 10/04/17 Status: Discontinued insulin lispro 3 unit, 0.03 mL, Route: SUB-Q, Drug form: SOLN, TID-Before Meals, Dosing Weight 73.182, kg, PRN Blood Glucose Results, Start date: 10/03/17 8:48:00 CDT, Duratio n: 30 day, Stop date: 11/02/17 8:47:00 CDT Notes: (Same as: Humalog ) Roll in palms of hands gently; Do not shake `vigorou sly. "Single Patient Use Only " WASTE: F/P - Black; E - [facility] [address] able for 28 days at room temperature.Expires in days from Da te Start Date: 10/03/17 Stop Date: 10/04/17 Status: Discontinued insulin lispro 2 unit, 0.02 mL, Route: SUB-Q, Drug form: SOLN, TID-Before Meals, Dosing Weight 73.182, kg, PRN Blood Glucose Results, Start date: 10/03/17 8:48:00 CDT, Duratio n: 30 day, Stop date: 11/02/17 8:47:00 CDT Notes: (Same as: Humalog ) Roll in palms of hands gently; Do not shake `vigorou sly. "Single Patient Use Only " WASTE: F/P - Black; E - [facility] [address] able for 28 days at room temperature.Expires in days from Da te Start Date: 10/03/17 Stop Date: 10/04/17 Status: Discontinued ketAMINE (ANES) Route: IV, Drug form: INJ, ONCE, Stop date: 10/04/17 9:42:00 CDT Start Date: 10/04/17 Stop Date: 10/04/17 Status: Completed Lantus 100 units/mL 20 unit, 0.2 mL, Route: SUB-Q, Drug form: SOLN, Bedtime, Dosing Weight 73.182, k g, Start date: 10/03/17 21:00:00 CDT, Duration: 30 day, Stop date: 11/01/17 21:0 0:00 CDT Notes: (Same as: Lantus)Do not hold insulin without contacting prescriberWASTE: F/P - Black; E - [facility] "single patient use only" Start Date: 10/03/17 Stop Date: 10/03/17 Status: Canceled Lantus 100 units/mL 15 unit, 0.15 mL, Route: SUB-Q, Drug form: SOLN, Daily, Dosing Weight 73.182, kg , Start date: 10/03/17 9:00:00 CDT, Duration: 30 day, Stop date: 11/01/17 9:00:0 0 CDT Notes: (Same as: Lantus)Do not hold insulin without contacting prescriberWASTE: F/P - Black; E - [facility] [facility] "single patient use only" Start Date: 10/03/17 Stop Date: 10/03/17 Status: Discontinued Lantus 100 units/mL 20 unit, Route: SUB-Q, Bedtime, Dosing Weight 73.182, kg, Start date: 10/03/17 2 1:00:00 CDT, Duration: 30 day, Stop date: 11/01/17 21:00:00 CDT Start Date: 10/03/17 Stop Date: 10/03/17 Status: Canceled Lantus 100 units/mL 15 unit, 0.15 mL, Route: SUB-Q, Drug form: SOLN, Bedtime, Dosing Weight 73.182, kg, Start date: 10/03/17 21:00:00 CDT, Duration: 30 day, Stop date: 11/01/17 21: 00:00 CDT Notes: (Same as: Lantus)Do not hold insulin without contacting prescriberWASTE: F/P - Black; E - [facility] [facility] "single patient use only" Start Date: 10/03/17 Stop Date: 10/06/17 Status: Discontinued Lipitor 10 mg, 1 tab, Route: PO, Drug form: TAB, Bedtime, Start date: 10/03/17 21:00:00 CDT, Duration: 30 day, Stop date: 11/01/17 21:00:00 CDT Notes: (Same As: Lipitor) Start Date: 10/03/17 Stop Date: 10/06/17 Status: Discontinued lovastatin 10 mg, Route: PO, Drug form: TAB, Bedtime, Dosing Weight 73.182, kg, Start date: 10/03/17 21:00:00 CDT, Duration: 30 day, Stop date: 11/01/17 21:00:00 CDT Start Date: 10/03/17 Stop Date: 10/03/17 Status: Deleted lovastatin 10 mg oral tablet 10 mg=1 tab, PO, Bedtime, # 30 tab, 0 Refill(s) Start Date: 10/03/17 Stop Date: 10/06/17 Status: Discontinued metFORMIN 1000 mg oral tablet 1,000 mg=1 tab, PO, BID-Meals, # 30 tab, 0 Refill(s) Start Date: 10/03/17 Stop Date: 10/06/17 Status: Discontinued metFORMIN 1000 mg oral tablet 1,000 mg=1 tab, PO, BID-Meals, # 6 tab, 0 Refill(s), given to patient Start Date: 10/06/17 Status: Ordered midazolam (ANES) Route: IV, Drug form: SOLN, ONCE, Stop date: 10/04/17 9:37:00 CDT Start Date: 10/04/17 Stop Date: 10/04/17 Status: Completed morphine Sulfate 2 mg, 0.5 mL, Route: IVP, Drug form: SOLN, Q4H, Dosing Weight 73.182, kg, PRN Pa in Score 7-10, Start date: 10/03/17 6:04:00 CDT, Duration: 30 day, Stop date: 6:03:00 CDT Notes: (Same as:MORPhine Sulfate) Start Date: 10/03/17 Stop Date: 10/06/17 Status: Discontinued NS 1,000 mL 1,000 mL, Rate: 75 ml/hr, Infuse over: 13.3 hr, Route: IV, Dosing Weight 73.182 kg, Total Volume: 1,000, Start date: 10/03/17 8:51:00 CDT, Duration: 30 day, Sto p date: 11/02/17 8:50:00 CDT, 1.81, m2 Start Date: 10/03/17 Stop Date: 10/06/17 Status: Discontinued Omnipaque 300 100 mL, Route: IV, Dosing Weight 73.182, kg, ONCE, Start date: 10/03/17 3:10:00 CDT, Stop date: 10/03/17 3:10:00 CDT Start Date: 10/03/17 Stop Date: 10/03/17 Status: Completed ondansetron 4 mg, 2 mL, Route: IVP, Drug form: INJ, Q6H, Dosing Weight 73.182, kg, PRN Nause a & Vomiting, Start date: 10/03/17 6:04:00 CDT, Duration: 30 day, Stop date: 11/02/17 6:03:00 CDT Notes: (Same as: Kumar) MEDICATION WASTE Product Size: 4 mgProduct Was kamla: ___ mg Start Date: 10/03/17 Stop Date: 10/06/17 Status: Discontinued ondansetron (ANES) Route: IV, Drug form: INJ, ONCE, Stop date: 10/04/17 9:42:00 CDT Start Date: 10/04/17 Stop Date: 10/04/17 Status: Completed propofol (ANES) Route: IV, Drug form: INJ, ONCE, Stop date: 10/04/17 9:37:00 CDT Start Date: 10/04/17 Stop Date: 10/04/17 Status: Completed Rocephin 1 gm, Route: IVPB, Drug form: PDR/INJ, ONCE, Dosing Weight 73.182, kg, Priority: STAT, Start date: 10/03/17 3:04:00 CDT, Stop date: 10/03/17 3:04:00 CDT, ABX In dication: Urinary Tract Infection Start Date: 10/03/17 Stop Date: 10/03/17 Status: Completed Saline Flush 0.9% 10 mL, Route: IVP, Drug Form: INJ, Dosing Weight 73.182, kg, PRN, PRN Line Flush , Start date: 10/03/17 0:36:00 CDT, Duration: 30 day, Stop date: 11/02/17 0:35:0 0 CDT Notes: Same as: BD Posiflush Sterile Start Date: 10/03/17 Stop Date: 10/06/17 Status: Discontinued Slow Release Iron 45 mg oral tablet, extended release 45 mg=1 tab, PO, Daily, # 30 tab, 1 Refill(s), given to patient Start Date: 10/06/17 Status: Ordered Sodium Chloride 0.9% IV 250 mL, IV, 250 ml/hr, PRN, PRN Blood Transfusion, Start date: 10/03/17 9:09:00 CDT, Duration: 1, 250 ml Start Date: 10/03/17 Stop Date: 10/04/17 Status: Completed Sodium Chloride 0.9% IV (ANES) 1000 mL Route: IV, Total Volume: 1,000, Start date: 10/04/17 8:48:00 CDT, Stop date: 9:48:00 CDT Start Date: 10/04/17 Stop Date: 10/04/17 Status: Completed tramadol 50 mg oral tablet 50 mg, 1 tab, Route: PO, Drug form: TAB, Q6H, Dosing Weight 73.182, kg, PRN Pain Score 1-3, Start date: 10/03/17 8:53:00 CDT, Duration: 30 day, Stop date: 11/02 8:52:00 CDT Notes: Not to exceed 400mg/day. (Same As: Ultram) Start Date: 10/03/17 Stop Date: 10/06/17 Status: Discontinued Results BLOOD BANK RESULTS 1 2 3 Most recent to oldest [Reference Range]: A POS *Unknown* (10/03/17 2:16 AM) ABO/Rh Negative (10/03/17 2:16 AM) Antibody Scrn Product available 1 (10/03/17 7:55 PM) Product available 2 (10/03/17 2:07 AM) RBC product 1Result Comment: 10/03/2017 20:44 [id number] Called to SHANNA Dorantes at 10/03/2017 20:44 RBC ready 2Result Comment: 10/03/2017 03:44 [id number] Called Cristian Restrepo. J ELECTROLYTES 1 2 3 Most recent to oldest [Reference Range]: 144 mEq/L (10/05/17 5:10 AM) 142 mEq/L (10/04/17 4:00 AM) 141 mEq/L (10/03/17 12:42 AM) Sodium Lvl [135-145 mEq/L] 3.8 mEq/L (10/05/17 5:10 AM) 3.6 mEq/L (10/04/17 4:00 AM) 4.1 mEq/L (10/03/17 12:42 AM) Potassium Lvl [3.5-5.1 mEq/L] 111 mEq/L *HI* (10/05/17 5:10 AM) 110 mEq/L *HI* (10/04/17 4:00 AM) 108 mEq/L (10/03/17 12:42 AM) Chloride Lvl [95-109 mEq/L] 27 mEq/L (10/05/17 5:10 AM) 24 mEq/L (10/04/17 4:00 AM) 23 mEq/L *LOW* (10/03/17 12:42 AM) CO2 [24-32 mEq/L] 9.8 mEq/L *LOW* (10/05/17 5:10 AM) 11.6 mEq/L (10/04/17 4:00 AM) 14.1 mEq/L (10/03/17 12:42 AM) AGAP [10.0-20.0 mEq/L] CHEM PANEL 1 2 3 Most recent to oldest [Reference Range]: 0.73 mg/dL (10/05/17 5:10 AM) 0.66 mg/dL (10/04/17 4:00 AM) 0.88 mg/dL (10/03/17 12:42 AM) Creatinine Lvl [0.50-1.40 mg/dL] 96 mL/min/1.73m2 1 *NA* (10/05/17 5:10 AM) 102 mL/min/1.73m2 2 *NA* (10/04/17 4:00 AM) 76 mL/min/1.73m2 3 *NA* (10/03/17 12:42 AM) eGFR 8 mg/dL (10/05/17 5:10 AM) 8 mg/dL (10/04/17 4:00 AM) 9 mg/dL (10/03/17 12:42 AM) BUN [7-22 mg/dL] 10 (10/03/17 12:42 AM) B/C Ratio [6-25] 187 mg/dL *HI* (10/05/17 5:10 AM) 252 mg/dL *HI* (10/04/17 4:00 AM) 316 mg/dL *HI* (10/03/17 12:42 AM) Glucose Lvl [70-99 mg/dL] 3.8 mg/dL (10/05/17 5:10 AM) Uric Acid [2.5-7.0 mg/dL] 5.9 g/dL *LOW* (10/03/17 12:42 AM) Total Protein [6.4-8.4 g/dL] 2.3 g/dL *LOW* (10/03/17 12:42 AM) Albumin Lvl [3.5-5.0 g/dL] 3.6 g/dL (10/03/17 12:42 AM) Globulin [2.7-4.2 g/dL] 0.6 *LOW* (10/03/17 12:42 AM) A/G Ratio [0.7-1.6] 7.4 mg/dL *LOW* (10/05/17 5:10 AM) 7.5 mg/dL *LOW* (10/04/17 4:00 AM) 7.9 mg/dL *LOW* (10/03/17 12:42 AM) Calcium Lvl [8.5-10.5 mg/dL] 1.8 mg/dL (10/04/17 4:00 AM) Magnesium Lvl [1.8-2.4 mg/dL] 11 unit/L (10/03/17 12:42 AM) ALT [0-65 unit/L] 14 unit/L (10/03/17 12:42 AM) AST [0-37 unit/L] 96 unit/L (10/03/17 12:42 AM) Alk Phos [39-136 unit/L] 0.4 mg/dL (10/03/17 12:42 AM) Bili Total [0.2-1.3 mg/dL] 1.7 mMol/L (10/05/17 5:10 AM) Lactic Acid Lvl [0.5-2.2 mMol/L] 0.06 ng/mL (10/05/17 5:10 AM) Procalcitonin Lvl [0.00-0.10 ng/mL] 1Result Comment: The eGFR is calculated using the [...] from the [employer] ( [employer]) which additionally recommends that when the eGFR is used in patients with extremes of body mass index for purposes of drug dosing, the eGFR should be mul tiplied by the estimated BMI. 2Result Comment: The eGFR is calculated using the [...] from the [employer] ( [employer]) which additionally recommends that when the eGFR is used in patients with extremes of body mass index for purposes of drug dosing, the eGFR should be mul tiplied by the estimated BMI. 3Result Comment: The eGFR is calculated using the [...] from the [employer] ( [employer]) which additionally recommends that when the eGFR is used in patients with extremes of body mass index for purposes of drug dosing, the eGFR should be mul tiplied by the estimated BMI. CARDIAC ENZYMES 1 2 3 Most recent to oldest [Reference Range]: 53 unit/L (10/03/17 12:42 AM) Total CK [12-191 unit/L] <1.0 ng/mL (10/03/17 12:42 AM) CK MB [0.5-3.6 ng/mL] <1.9 (10/03/17 12:42 AM) CK MB Index [0.0-2.5] <0.02 ng/mL (10/03/17 12:42 AM) Troponin-I [0.00-0.40 ng/mL] 40 pg/mL (10/05/17 5:10 AM) BNP [<=100 pg/mL] LIPIDS 1 2 3 Most recent to oldest [Reference Range]: 5.00 (10/05/17 5:10 AM) CHD Risk [3.90-5.80] 110 mg/dL (10/05/17 5:10 AM) Chol [<=199 mg/dL] 123 mg/dL (10/05/17 5:10 AM) Trig [<=149 mg/dL] 22 mg/dL *LOW* (10/05/17 5:10 AM) HDL [>=61 mg/dL] 63 mg/dL (10/05/17 5:10 AM) LDL (Calculated) [<=99 mg/dL] 25 *NA* (10/05/17 5:10 AM) VLDL SPECIAL CHEMISTRY 1 2 3 Most recent to oldest [Reference Range]: 6.3 % *HI* (10/05/17 5:10 AM) Hgb A1C [<=5.6 %] ANEMIA STUDY 1 2 3 Most recent to oldest [Reference Range]: 22 ug/dl *LOW* (10/03/17 12:42 AM) Iron [30-160 ug/dl] 20 ng/mL (10/03/17 12:42 AM) Ferritin Lvl [5-204 ng/mL] 5 % *LOW* (10/03/17 12:42 AM) % Satur Fe [12-57 %] 397 ug/dl *HI* (10/03/17 12:42 AM) UIBC [110-370 ug/dl] 186 pg/mL *LOW* (10/03/17 12:42 AM) Vitamin B12 Lvl [254-1320 pg/mL] 17.6 ng/mL (10/03/17 5:38 PM) Folate Lvl [>=3.0 ng/mL] 419 ug/dl (10/03/17 12:42 AM) TIBC [228-428 ug/dl] URINE AND STOOL 1 2 3 Most recent to oldest [Reference Range]: Marked *ABN* (10/03/17 10:57 PM) Marked *ABN* (10/03/17 2:16 AM) UA Turbidity [Clear] Anna *ABN* (10/03/17 10:57 PM) Red *ABN* (10/03/17 2:16 AM) UA Color [Yellow] 7.0 (10/03/17 10:57 PM) 6.0 (10/03/17 2:16 AM) UA pH [5.0-8.0] 1.016 (10/03/17 10:57 PM) 1.017 (10/03/17 2:16 AM) UA Spec Grav [<=1.030] 150 mg/dL *NA* (10/03/17 10:57 PM) UA Glucose 500 mg/dL *ABN* (10/03/17 2:16 AM) UA Glucose [Negative mg/dL] Large *ABN* (10/03/17 10:57 PM) Large *ABN* (10/03/17 2:16 AM) UA Blood [Negative] Negative *NA* (10/03/17 10:57 PM) Negative *NA* (10/03/17 2:16 AM) UA Ketones >=300 mg/dL *ABN* (10/03/17 10:57 PM) >=300 mg/dL *ABN* (10/03/17 2:16 AM) UA Protein [Negative mg/dL] <=1.0 mg/dL *NA* (10/03/17 10:57 PM) 2.0 mg/dL *HI* (10/03/17 2:16 AM) UA Urobilinogen [0.1-1.0 mg/dL] Negative *NA* (10/03/17 10:57 PM) Negative *NA* (10/03/17 2:16 AM) UA Bili [Negative] Negative (10/03/17 10:57 PM) Negative (10/03/17 2:16 AM) UA Leuk Est [Negative] Negative (10/03/17 10:57 PM) Negative (10/03/17 2:16 AM) UA Nitrite [Negative] 6-10 /HPF *ABN* (10/03/17 10:57 PM) 18 /HPF *HI* (10/03/17 2:16 AM) UA WBC [0-5 /HPF] >182 /HPF *ABN* (10/03/17 10:57 PM) >182 /HPF *HI* (10/03/17 2:16 AM) UA RBC [0-2 /HPF] Few /HPF (10/03/17 10:57 PM) Many /HPF *ABN* (10/03/17 2:16 AM) UA Bacteria [None Seen /HPF] None Seen *NA* (10/03/17 10:57 PM) None Seen *NA* (10/03/17 2:16 AM) UA Sq Epi Moderate /LPF *ABN* (10/03/17 10:57 PM) UA Mucus [None Seen /LPF] IMMUNOLOGY 1 2 3 Most recent to oldest [Reference Range]: 7.9 mg/L *HI* (10/05/17 5:10 AM) CRP [<=2.9 mg/L] Negative *NA* (10/05/17 5:10 AM) HIV Ag/Ab 4th Gen [Negative] Negative *NA* (10/05/17 5:10 AM) Hep Bs Ag [Negative] Negative *NA* (10/05/17 5:10 AM) Hep B Core IgM [Negative] Negative *NA* (10/05/17 5:10 AM) Hep A IgM [Negative] Negative *NA* (10/05/17 5:10 AM) Hep C Ab HEMATOLOGY 1 2 3 Most recent to oldest [Reference Range]: 3.0 K/CMM *LOW* (10/06/17 3:51 AM) 3.3 K/CMM *LOW* (10/05/17 5:10 AM) 3.6 K/CMM *LOW* (10/04/17 4:00 AM) WBC [3.7-10.4 K/CMM] 2.34 M/CMM *LOW* (10/06/17 3:51 AM) 2.39 M/CMM *LOW* (10/05/17 5:10 AM) 2.50 M/CMM *LOW* (10/04/17 4:00 AM) RBC [4.20-5.40 M/CMM] 6.8 g/dL 1 *CRIT* (10/06/17 3:51 AM) 7.1 g/dL *LOW* (10/05/17 3:22 PM) 6.9 g/dL 2 *CRIT* (10/05/17 5:10 AM) Hgb [12.0-16.0 g/dL] 20.4 % *LOW* (10/06/17 3:51 AM) 21.6 % *LOW* (10/05/17 3:22 PM) 20.6 % *LOW* (10/05/17 5:10 AM) Hct [36.0-48.0 %] 87.2 fL (10/06/17 3:51 AM) 86.2 fL (10/05/17 5:10 AM) 85.6 fL (10/04/17 4:00 AM) MCV [80.0-98.0 fL] 28.8 pg (10/06/17 3:51 AM) 28.8 pg (10/05/17 5:10 AM) 28.8 pg (10/04/17 4:00 AM) MCH [27.0-31.0 pg] 33.1 g/dL (10/06/17 3:51 AM) 33.4 g/dL (10/05/17 5:10 AM) 33.7 g/dL (10/04/17 4:00 AM) MCHC [32.0-36.0 g/dL] 15.1 % *HI* (10/06/17 3:51 AM) 14.8 % *HI* (10/05/17 5:10 AM) 15.0 % *HI* (10/04/17 4:00 AM) RDW [11.5-14.5 %] 10.0 fL (10/06/17 3:51 AM) 9.4 fL (10/05/17 5:10 AM) 9.7 fL (10/04/17 4:00 AM) MPV [7.4-10.4 fL] 92 K/CMM *LOW* (10/06/17 3:51 AM) 92 K/CMM *LOW* (10/05/17 5:10 AM) 106 K/CMM *LOW* (10/04/17 4:00 AM) Platelet [133-450 K/CMM] 63.8 % (10/06/17 3:51 AM) 63.0 % (10/05/17 5:10 AM) 60.7 % (10/04/17 4:00 AM) Segs [45.0-75.0 %] 27.5 % (10/06/17 3:51 AM) 28.2 % (10/05/17 5:10 AM) 30.6 % (10/04/17 4:00 AM) Lymphocytes [20.0-40.0 %] 6.9 % (10/06/17 3:51 AM) 6.9 % (10/05/17 5:10 AM) 6.9 % (10/04/17 4:00 AM) Monocytes [2.0-12.0 %] 1.4 % (10/06/17 3:51 AM) 1.5 % (10/05/17 5:10 AM) 1.2 % (10/04/17 4:00 AM) Eosinophils [0.0-4.0 %] 0.4 % (10/06/17 3:51 AM) 0.4 % (10/05/17 5:10 AM) 0.6 % (10/04/17 4:00 AM) Basophils [0.0-1.0 %] 1.9 K/CMM (10/06/17 3:51 AM) 2.1 K/CMM (10/05/17 5:10 AM) 2.2 K/CMM (10/04/17 4:00 AM) Segs-Bands # [1.5-8.1 K/CMM] 0.8 K/CMM *LOW* (10/06/17 3:51 AM) 0.9 K/CMM *LOW* (10/05/17 5:10 AM) 1.1 K/CMM (10/04/17 4:00 AM) Lymphocytes # [1.0-5.5 K/CMM] 0.2 K/CMM (10/06/17 3:51 AM) 0.2 K/CMM (10/05/17 5:10 AM) 0.3 K/CMM (10/04/17 4:00 AM) Monocytes # [0.0-0.8 K/CMM] Normal (10/03/17 12:42 AM) RBC Morph slight *NA* (10/03/17 12:42 AM) Polychrom 1+ (10/03/17 12:42 AM) Hypochrom [None Seen] Normal (10/03/17 12:42 AM) Plt Morph 14.9 seconds *HI* (10/05/17 5:10 AM) 14.3 seconds (10/03/17 5:38 PM) PT [12.0-14.7 seconds] 1.16 (10/05/17 5:10 AM) 1.11 (10/03/17 5:38 PM) INR [0.85-1.17] 26.4 seconds (10/05/17 5:10 AM) 26.7 seconds (10/03/17 5:38 PM) PTT [22.9-35.8 seconds] 1Result Comment: Critical Result(s) called to Danilo Acuna at 10/06/2017 04:42 byJW . Read back OK. 2Result Comment: Critical Result(s) called to Tom Gee at 10/05/2017 05:41 byJW . Read back OK. TUMOR MARKERS 1 2 3 Most recent to oldest [Reference Range]: 4.2 ng/mL (10/05/17 5:10 AM) AFP TM [0.0-11.0 ng/mL] Microbiology Reports TEST: Culture: Urine STATUS: Auth (Verified) BODY SITE: SOURCE: Urine, Clean Catch COLLECTED DATE/TIME: 10/03/17 2:16 AM FINAL REPORT <10,000 CFU/mL Skin Kia Immunizations No data available for this section Procedures Procedure Date Related Diagnosis Body Site Status TL - Tubal ligation 1988 Completed Cancer chemotherapy regimen1 Completed Contact radiation therapy procedure Completed Social History Social History Type Response Substance Abuse Use: None. Sexual Sexually active: No. Exercise Exercise duration: 0. Employment/School Status: Employed. Alcohol Never Smoking Status Never smoker; Exposure to Tobacco Smoke None; Cigarette Smoking Last 365 Days No; Reg Smoking Cessation Counseling No entered on: 10/03/17 Assessment and Plan Extracted from: Title: Clinical Document Author: Kalyan Shirley MD Date: 10/06/17 Progress Daily [facility] Completed: Sep, 11:18 by Kalyan Shirley MD RM: 338 - [id number], GH [id number], [id number] (: 1965) F Attending: Dawson Pérez MDPhone: Service: Internal Medicine Reason for Admission: ANEMIA, HEMATURIA ,SHORTNESS OF BREATH, TYPE 2 DIABETES Working DRG: Code status: Full Code [Ordered]Current diet: Isolation: No Isolation/Standard Precautions Allergies: NKDA SUBJECTIVE The patient is feeling well today. OBJECTIVE Hemoglobin is 6.8 which is fairly stable from yesterday at 7.1 and 6.9 ASSESSMENT & EXAM Abdomen is soft Riley catheters in good position with grossly clear urine PLAN & TREATMENT DC Riely catheter Okay to DC home. No blood transfusions will be necessary since she is not actively bleeding and should have improvement of her anemia over the next several weeks to months. DIAGNOSES & PROBLEMS Acute anemia secondary to hemorrhagic cystitis requiring transfusion of 3 units of packed red blood cells Status post cystoscopy, evacuation of clot, fulguration of bleeding, bladder biopsy, postop day #2 Ready for Discharge (Yes/No)? Riley still necessary (Yes/No): Line still necessary (Yes/No): 24hr Labs 10/06 1109 POC Performing LocatioSee Note Glucose MVV126 H 10/06 0714 POC Performing LocatioSee Note Glucose HNL159 H 10/06 0351 WBC3.0 L RBC2.34 L Hgb6.8 C Hct20.4 L MCV87.2 MCH28.8 MCHC33.1 RDW15.1 H Xjurdwjz85 L MPV10.0 Segs63.8 Monocytes6.9 Uhnwnqhtihv06.5 Eosinophils1.4 Basophils0.4 Segs-Bands #1.9 Lymphocytes #0.8 L Monocytes #0.2 10/06 0241 POC Performing LocatioSee Note Glucose LBL752 H 10/05 2117 POC Performing LocatioSee Note Glucose ZRM577 H 10/05 1555 POC Performing LocatioSee Note Glucose PNI202 H 10/05 1522 Hgb7.1 L Hct21.6 L 10/05 1152 POC Performing LocatioSee Note Glucose OTN123 H 10/05 0510 Hep Bs AgNegative Hep B Core IgMNegative Hep A IgMNegative Hep C AbNegative AFP TM4.2 VitalsTmp(F)UreigSJLVUmM6PID5 10/06 06:5497.39908/222651--- 10/06 04:1098.791311/6818------ 10/05 23:5098.049768/6318------ 10/05 19:2998.344955/199516--- 10/05 15:4498.408451/650718--- 24 Hr Tmax: 98.7F (37.06c) at 10/05 15:44Vital Signs are the last 5 in the past 48 hours. DateWt(kg)Wt(lb)Ht(cm)Ht(in)Method 10/03 79.55 175.06726.48 62.00Measured 10/02 (initial) 73.18 161.00Measured .48 62.00Estimated I&ORecordInOutBal 09/2423hr Tot 0 0 0 09/2323hr Tot 1630 [id number] Medications (23) Active Scheduled Meds (4): 10/03/17 atorvastatin (Lipitor) 10 mg PO Bedtime 10/04/17 cefTRIAXone + sterile water 10 mL 1 gm IVP [id number] 120 ml/hr 10/03/17 famotidine (famotidine 20 mg oral tablet) 20 mg PO BID 10/03/17 insulin glargine (Lantus 100 units/mL) 15 unit SUB-Q Bedtime 0 ml/hr Unscheduled Meds: None PRN Meds (18): 10/03/17 Dextrose 50% in Water IV (Dextrose 50% Syringe) 12.5 gm IVP PRN 10/03/17 Dextrose 50% in Water IV (Dextrose 50% Syringe) 25 gm IVP PRN 10/03/17 acetaminophen 325 mg PO Q4H 10/03/17 docusate 100 mg PO BID 10/03/17 glucagon 1 mg IM PRN 10/03/17 insulin lispro 1 unit SUB-Q Bedtime 10/03/17 insulin lispro 2 unit SUB-Q Bedtime 10/03/17 insulin lispro 3 unit SUB-Q Bedtime 10/03/17 insulin lispro 4 unit SUB-Q Bedtime 10/04/17 insulin lispro 2 unit SUB-Q TID-Before Meals 10/04/17 insulin lispro 4 unit SUB-Q TID-Before Meals 10/04/17 insulin lispro 6 unit SUB-Q TID-Before Meals 10/04/17 insulin lispro 8 unit SUB-Q TID-Before Meals 10/04/17 insulin lispro 10 unit SUB-Q TID-Before Meals 10/03/17 morphine Sulfate 2 mg IVP Q4H 10/03/17 ondansetron 4 mg IVP Q6H 10/03/17 sodium chloride (Saline Flush 0.9%) 10 mL IVP PRN 10/03/17 tramadol (tramadol 50 mg oral tablet) 50 mg PO Q6H One Time Meds: None Continuous Infusions (1): 10/03/17 Sodium Chloride 0.9% IV 1,000 mL (NS 1,000 mL) 1,000 mL 75 ml/hr Extracted from: Title: Clinical Document Author: Kalyan Shirley MD Date: 10/04/17 PATIENT NAME: Fely Guerrero DATE OF OPERATION/PROCEDURE: 10/04/2017 *_*_* PREOPERATIVE DIAGNOSES: 1. Gross hematuria 2. History of cervical cancer status post chemoradiation POSTOPERATIVE DIAGNOSES: Same as above PROCEDURE PERFORMED: Cystoscopy, evacuation of clot, bladder biopsy, fulguration of bleeding SURGEON: Kalyan Shirley M.D. TOOL DESIGN DRAFTSPERSON: None. ANESTHESIA: General. ESTIMATED BLOOD LOSS: 50mL. COMPLICATIONS: None. SPECIMEN: Bladder biopsies DRAINS: None INDICATIONS FOR PROCEDURE: There is a 52-year-old woman with a history of cervical cancer status chemoradiation in 2014 who presents to the hospital with a 13 day history of gross hematuria and a hemoglobin of 5.2. She was transfused 2 units of blood with a rise in hemoglobin to 7.2. She is here for operative intervention due to active bleeding from the bladder. PROCEDURE IN DETAIL: After the procedure and risks were explained to the patient and consent reviewed, the patient was brought back to the operative suite. The patient was placed in supine position and put under general anesthesia. Once adequate anesthesia was obtained the patient was placed in modified dorsal lithotomy position. The perineal and genital area were prepped and draped in the usual sterile fashion and preoperative antibiotics were given. A 21 Syriac cystoscope was placed in the urethra and navigated into the bladder. The patient had a significant amount of clot within the bladder was obscured the visualization of the mucosa. A 27 Syriac resectoscope was then placed in the bladder and using the evacuator all the clots were removed. The 21 Skip was then placed back in the bladder and the visualization of the bladder showed no signs of any masses although she has significant prominence of her veins in the submucosal area particularly at the dome of the bladder. Cold cup biopsies were performed at the erythematous sites of the mucosa. These were sent for permanent specimen. All biopsy sites and all the prominent submucosal blood vessels were then fulgurated with the Bugbee catheter. The cystoscope was removed and an 18 Syriac Riley catheter was placed post procedure. The patient tolerated the procedure well, was awakened from general anesthesia, and sent to the PACU in good condition. Extracted from: Title: Clinical Document Author: Kalyan Shirley MD Date: 10/03/17 UROLOGY CONSULTATION REFERRING PHYSICIAN:Isabel Santizo MD DATE OF ADMISSION: 10/03/2017 DATE OF CONSULTATION: 10/03/2017 CHIEF COMPLAINT: Gross hematuria HISTORY OF PRESENT ILLNESS: This is [id number] woman with a history of cervical cancer status post chemoradiation completed in 2015. She presents to the hospital with a 13 day history of gross hematuria and shortness of breath. There were no urinary issues except for some obstruction due to clots. Prior to her episode of gross hematuria, she denies any symptoms. PAST MEDICAL HISTORY: Significant fordiabetes, hyperlipidemia, cervical cancer status post chemo radiation PAST SURGICAL HISTORY: Significant for atubal ligation ALLERGIES: No known drug allergies MEDICATIONS: Please see medication reconciliation sheet SOCIAL HISTORY: The patient does not smoke or drink and denies any IV drug use. REVIEW OF SYSTEMS: Constitutional Symptoms: no fever, no weight loss, no weight gain, fatigue, no malaise Eyes: no diplopia, no blurred vision, no redness, no discharge, no loss of vision Ears, Nose, Mouth, Throat: no dysphagia, no odynophagia, no otalgia, no deafness, no rhinorrhea Cardiovascular: no chest pain, SOB, no YUSUF, no orthopnea, no PND, exercise tolerated, no palpitations Respiratory: same as CVS, no cough, no hemoptysis Gastrointestinal: no NVD, no BPR, no dark stool, no constipation, no abdominal pain Genitourinary: no dysuria, no frequency, no urgency, no nocturia, no incontinence Musculoskeletal: no arthralgia, no myalgia, no stiffness Integumentary: (skin and/or breast): no rash, no hives, no breast pain, no mass, no nipple dc Neurological: no weakness, no headache, no seizure, no dizziness, no tingling, no numbness Psychiatric: no anxiety, no depression, no insomnia Endocrine: no polyuria, no polydipsia, no fatigue, no weight loss, no weight gain, no cold or heat intolerance, no palpitations Hematologic/Lymphatic: no bleeding, no bruising, no edema, no lumps (axilla groin neck) Allergic/Immunologic: no rash, no allergies, no fever, no chills PHYSICAL EXAMINATION: VitalsTmp(F)MwrdpZLOHCrA5HXK8 10/03 10:3599.974206/64--98--- 10/03 07:0498.124522/738872--- 10/03 06:2998.337765/3761464--- 10/03 05:27----07199/5119------ 10/03 05:1198.348240/6383159 1.0L/m 24 Hr Tmax: 99.5F (37.50c) at 10/03 10:35Vital Signs are the last 5 in the past 48 hours. General Appearance: Well appearing, well developed, well nourished, well hydrated, good color, and in no acute distress Head: Normocephalic atraumatic Chest Wall: No retractions Abdomen: soft, non-tender, non-distended, no HSM, and no mass Musculoskeletal: No obvious deformity. Moves all 4 extremities, stable gait. Genitourinary no masses, urethra has no hypermobility or lesions Lymph: No cervical, axillary or inguinal lymphadenopathy Extremities: Symmetric, no obvious defect, and no cyanosis/clubbing/edema. Neurologic: Alert/appropriate, normal strength, normal tone, and CN II-XII grossly intact. Clear speech, aao x 3. Skin: No nevus no lesions no rash. No jaundice. Psych: Mood congruent affect, responds appropriately to questions. LABORATORY DATA: [facility]* A/G Ratio: 0.6 Low (10/03/17) ABO/Rh: A POS (10/03/17) AGAP: 14.1 mEq/L (10/03/17) Albumin Lvl: 2.3 g/dL Low (10/03/17) Alk Phos: 96 unit/L (10/03/17) ALT: 11 unit/L (10/03/17) Antibody Scrn: Negative (10/03/17) AST: 14 unit/L (10/03/17) B/C Ratio: 10 (10/03/17) Basophils: 0.4 % (10/03/17) Bili Total: 0.4 mg/dL (10/03/17) BUN: 9 mg/dL (10/03/17) Calcium Lvl: 7.9 mg/dL Low (10/03/17) Chloride Lvl: 108 mEq/L (10/03/17) CK MB: <1.0 (10/03/17) CK MB Index: <1.9 (10/03/17) CO2: 23 mEq/L Low (10/03/17) Creatinine Lvl: 0.88 mg/dL (10/03/17) eGFR: 76 mL/min/1.73m2 (10/03/17) Eosinophils: 0.6 % (10/03/17) Globulin: 3.6 g/dL (10/03/17) Gluc POC Comment 1: Notified RN/MD (10/03/17) Glucose Lvl: 316 mg/dL High (10/03/17) Glucose POC: 248 mg/dL High (10/03/17) Hct: 16.3 % Critical (10/03/17) Hgb: 5.2 g/dL Critical (10/03/17) Hypochrom: 1 + (10/03/17) Lymphocytes: 28.1 % (10/03/17) Lymphocytes #: 1.4 K/CMM (10/03/17) MCH: 28.4 pg (10/03/17) MCHC: 31.9 g/dL Low (10/03/17) MCV: 89 fL (10/03/17) Monocytes: 6.7 % (10/03/17) Monocytes #: 0.3 K/CMM (10/03/17) MPV: 10 fL (10/03/17) Platelet: 137 K/CMM (10/03/17) Plt Morph: Normal (10/03/17) POC Performing Location: See Note (10/03/17) Polychrom: slight (10/03/17) Potassium Lvl: 4.1 mEq/L (10/03/17) RBC: 1.84 M/CMM Low (10/03/17) RBC Morph: Normal (10/03/17) RBC product: Product available (10/03/17) RDW: 16.8 % High (10/03/17) Segs: 64.2 % (10/03/17) Segs-Bands #: 3.2 K/CMM (10/03/17) Sodium Lvl: 141 mEq/L (10/03/17) Total CK: 53 unit/L (10/03/17) Total Protein: 5.9 g/dL Low (10/03/17) TRANSFUSED: TRANSFUSED (10/03/17) Troponin-I: <0.02 (10/03/17) UA Bacteria: iMany Abnormal (10/03/17) UA Bili: NEG (10/03/17) UA Blood: iLARGE Abnormal (10/03/17) UA Color: cRed Abnormal (10/03/17) UA Glucose: c500 Abnormal (10/03/17) UA Ketones: Negative (10/03/17) UA Leuk Est: NEG (10/03/17) UA Nitrite: NEG (10/03/17) UA pH: 6 (10/03/17) UA Protein: c>=300 Abnormal (10/03/17) UA RBC: >182 High (10/03/17) UA Spec Grav: 1.017 (10/03/17) UA Sq Epi: None Seen (10/03/17) UA Turbidity: 05 Abnormal (10/03/17) UA Urobilinogen: 2 mg/dL High (10/03/17) UA WBC: 18 /HPF High (10/03/17) WBC: 4.9 K/CMM (10/03/17) XM EXM Interp: Compatible (10/03/17) XM EXM Interp: Compatible (10/03/17) DIAGNOSTIC STUDIES: CT ABDOMEN AND PELVIS WITH CONTRAST DATED [...] blood products given the history of hematuria. IMPRESSION: This is [id number] woman with history of cervical cancer status post chemoradiation now with a two-week history of gross hematuria and acute anemia. Her hemoglobin was 5.2 and she is being actively transfused with 2 units of packed red blood cells. PLAN: After discussing with the patient her options, she is agreed to undergo a cystoscopy and bladder biopsy with fulguration of bleeding. The procedure risks were explained to the patient and consent will be obtained. She will be made n.p.o. after midnight. Thank you for this consult. I will follow the patient with you. Extracted from: Title: Admission H&P Author: Isabel Santizo Date: 10/03/17 Impression and Plan 1. Hematuria, blood loss anemia, thickening of the bladder wallAdmit to inpatient / telemetry obtain type and screen check iron studies, B12, folate, PT, PTT transfuse 2 units PRBCs repeat CBC after transfusion consult Urology due to hematuria and abnormal CT scan appearance of bladder 2. DM2 sliding scale insulin 3. Hyperlipidemia continue home meds 4. Liver cirrhosis by CT scan; patient did not have a prior diagnosis of liver disease or cirrhosis patient denies hematemesis or melena check PT, PTT consider GI consult or outpatient referral code: full
--- OUTSIDE RECORDS SUMMARY | 2018-04-13 08:32 | XMS REPORT ---
Author [facility] Address Unknown Phone Unavailable Care Team Providers Care Channel Executive Name Role Phone XENIA WOODARD PP Unavailable Sarah WOODARD Unavailable Unavailable AMBROCIO HOOVER Unavailable Unavailable Problems This patient has no known problems. Allergies, Adverse Reactions, Alerts This patient has no known allergies or adverse reactions. Medications This patient has no known medications. Encounters Start Date/Time End Date/Time Encounter Type Admission Type Attending Clinicians Care Facility Care Department Encounter ID 2017-03-27 09:48:00 2017-03-27 09:48:00 Outpatient [facility] [id number] 2017-02-27 09:51:00 2017-02-27 09:51:00 Outpatient [facility] [id number] Results Test Description Test Time Test Comments Text Results Atomic Results Result Comments [id number]& PELVIS W/WO CONTRAST 2017-03-27 12:21:50 CT ABDOMEN AND PELVIS WITHOUT AND WITH CONTRASTHISTORY: C53.9: MALIGNANT NEOPLASM OF CERVIX UTERI, UNSPECIFIEDCOMPARISON: CT abdomen and pelvis dated June 25, 2016, CT chestabdomen and pelvis from August 17, 2015TECHNIQUE: Axial images of the abdomen and pelvis were obtained prior toand following the administration of 100 mL Isovue-300 intravenouscontrast. Oral contrast was also provided. Coronal and sagittalreformats were provided. One or more of the following dose reductiontechniques were used: Automated exposure control, adjustment of the mAand/or kV according to patient size, and/or utilization of iterativereconstruction technique.FINDINGS:Lower thorax: A 4 mm nodule in the left lower lobe is stable. Aposterior mediastinal lymph node, abutting the esophagus, measures 9 mmin short axis-stable.Hepatobiliary: The liver shows surface nodularity compatible withunderlying cirrhosis. The right hepatic lobe measures 18 cm in span. No hepatic mass is identified. No biliary ductal dilatation.Gallbladder: The gallbladder is contracted.Spleen: The enlarged spleen measures 18.7 cm in span.Pancreas: Unremarkable.Adrenals: Unremarkable.Kidneys/ureters: A 1 cm Bosniak type I cyst in the posterior leftkidney is stable. No hydronephrosis is present.Bowel: No abnormal bowel wall thickening or evidence of obstruction. Theappendix is normal.Pelvic organs/bladder: There are chronic post radiation changes in thecervix. The endometrial cavity remains fluid expanded up to 2.1 cm. The myometrium is heterogeneous. Bilateral tubal ligation clips arenoted. No adnexal mass is identified. The urinary bladder wall showsmild circumferential thickening.Vessels: The abdominal aorta is normal in caliber with mildatherosclerotic change.Lymph nodes: Iliac chain and retroperitoneal lymph nodes measure up to 9mm in short axis.Peritoneum/Retroperitoneum: No ascites or free fluid is identified.Bones/soft tissues: No destructive bony lesions.IMPRESSION:1. Post radiation changes are seen in the cervix. The e ndometrialcavity remains fluid distended up to 2.1 cm.2. No adenopathy by CT size criteria.3. Circumferential thickening of the urinary bladder wall. Correlatefor cystitis or UTI.4. Probable mild liver cirrhosis. Hepatosplenomegaly.LOCATION: R16 Creatinine 2017-03-27 11:31:00 Creatinine (test code=CREAT) 0.7 mg/dL 0.5-0.9 Estimated GFR (test code=GFR) >60 mL/min/1.73m2 eGFR (estimated Glomerular Filtration Rate) is an estimated value,calculated from the patient's serum creatinine using the MDRD equation.It is NOT the patient's actual GFR. The eGFR provides a more clinicallyuseful measure of kidney disease than serum creatinine alone.This calculation takes sex and race into account, if the informationis provided. If the race is not provided, and the patient isAfrican-Uz[place], multiply by 1.212. If sex is not provided, and thepatient is female, multiply by 0.742. Results for patients <18 years ofage have not been validated by the MDRD study and should be interpretedwith caution.eGFR Result Interpretation:eGFR > or=60 is in the Normal RangeeGFR < 60 may mean kidney diseaseeGFR < 15 may mean kidney failureRanges recommended by the National Kidney Foundat ion,http://nkdep.nih.gov Culture, [id number] 09:03:00Specimen: Urine, CC-MidstreamCollected: 06/25/2016 00:45 Status: Final Last Updated: 06/27/2016 09:03 (1) ER Bed 17 Culture Result (Final) (Final) 06/26/16 <10,000 CFU/mL Lactobacillus species 06/27/16 30,000 CFU/mL Diphtheroids 06/27/16 Multiple organisms present, no further workup in progress Isolate (Final) (Final) 06/26/16 >100,000 CFU/mL Staph-coag positive Isolate (Final) (Final) 06/26/16 20,000 CFU/mL Streptococcus agalactiae Isolate Staph-coag positive NAILA (mcg/ml) Amoxicillin/Clav (AUG)<=4/2 Susceptible Ampicillin (AM) 4 Resistant Ampicillin/Sulb (A/S) <=8/4 Susceptible Cefazolin (CFZ) <=4 Susceptible Ceftriaxone (CUSTOMS COMPLIANCE ANALYST) <=4 Susceptible Ciprofloxacin (CP) <=1 Susceptible Gentamicin (GM) <=1 Susceptible Imipenem (IMP) <=4 Susceptible Levofloxacin (LEV) <=0.5 Susceptible Linezolid (LNZ) 2 Susceptible Nitrofurantoin (FT) <=32 Susceptible Oxacillin (OX1) <=0.25 Susceptible Penicillin (P) 2 Resistant Rifampin (RA) <=1 Susceptible Tetracycline (TE) <=1 Susceptible Trimethoprim/Sulfa <=0.5/9.Susceptible (SXT) 5 Vancomycin (VA) 1 Susceptible Basic Metabolic [id number] 02:21:00* Test Item Value Reference Range Comments Sodium (test code=NA) 133 mmol/L 135-145 Potassium (test code=K) 4.7 mmol/L 3.5-5.1 Hemolyzed Chloride (test code=CL) 97 mmol/L 98-105 Carbon Dioxide (test code=CO2) 23 mmol/L 22-29 Glucose (test code=GLU) 382 mg/dL 70-115 Blood Urea Nitrogen (test code=BUN) 13 mg/dL 6-20 Creatinine (test code=CREAT) 0.8 mg/dL 0.5-0.9 Calcium (test code=CA) 9.1 mg/dL 8.3-10.5 BUN/Creatinine Ratio (test code=BCRATIO) 16.3 Anion Gap (test code=AGAP) 13 mmol/L 7-16 Estimated GFR (test code=GFR) >60 mL/min/1.73m2 eGFR (estimated Glomerular Filtration Rate) is an estimated value,calculated from the patient's serum creatinine using the MDRD equation.It is NOT the patient's actual GFR. The eGFR provides a more clinicallyuseful measure of kidney disease than serum creatinine alone.This calculation takes sex and race into account, if the informationis provided. If the race is not provided, and the patient isAfrican-Uz[place], multiply by 1.212. If sex is not provided, and thepatient is female, multiply by 0.742. Results for patients <18 years ofage have not been validated by the MDRD study and should be interpretedwith caution.eGFR Result Interpretation:eGFR > or=60 is in the Normal RangeeGFR < 60 may mean kidney diseaseeGFR < 15 may mean kidney failureRanges recommended by the National Kidney Foundat ion,http://nkdep.nih.gov Urinalysis [id number] 01:40:00* Test Item Value Reference Range Comments Color (test code=COLOR) Yellow Yellow,Straw,Pl yellow Clarity (test code=CLAR) Sl Cloudy Clear Specific Andrew (test code=SPGR) 1.028 1.001-1.035 pH (test code=PH) 5.0 5.0-9.0 Ketone (test code=KET) Negative mg/dL Negative Glucose (test code=GLUCUR) 300 mg/dL Negative Protein (test code=PROT) Negative mg/dL Negative Bilirubin (test code=BILI) Negative mg/dL Negative Occult Blood (test code=UDOB) Large Negative Urobilinogen (test code=UROB) 4.0 mg/dL 0.2-1.0 Nitrite (test code=NIT) Negative Negative Leuk Esterase (test code=LEUK) Negative Negative Micros Exam (test code=MEXAM) Indicated Epithelial Cells (test code=EPI) 3-5 /LPF 0-30 WBC, Urine (test code=UWBC) 0-1 /HPF 0-5 RBC, Urine (test code=URBC) 51-100 /HPF 0-5 Bacteria (test code=BACT) Few /HPF Prothrombin [id number] 01:35:00* Test Item Value Reference Range Comments PT (test code=PT) 11.60 seconds 9.78-13.35 INR (test code=INR) 1.02 Ratio 0.6-1.2 Partial Thromboplastin [id number] 01:35:00* Test Item Value Reference Range Comments aPTT (test code=PTT) 23.60 seconds 24.39-37.25 CBC with [id number] 01:23:00* Test Item Value Reference Range Comments WBC (test code=WBC) 4.0 K/cumm 4.4-10.5 RBC (test code=RBC) 4.46 M/cumm 3.75-5.20 Hemoglobin (test code=HGB) 12.2 gm/dL 12.2-14.8 Hematocrit (test code=HCT) 38.5 % 36.5-44.4 MCV (test code=MCV) 86.2 fL 80-100 MCH (test code=MCH) 27.3 pg 27.0-32.5 MCHC (test code=MCHC) 31.6 g/dL 32.0-37.5 RDW (test code=RDW) 15.8 % 11.5-14.5 Platelet Count (test code=PLTCT) 68 K/cumm 140-440 MPV (test code=MPV) 11.1 fL Diff Method (test code=DIFFM) Auto Neutrophil (test code=NEUT) 71.4 % 36-70 Lymphocyte (test code=LYMPH) 19.8 % 12-44 Monocyte (test code=MONO) 6.6 % 0-11 Eosinophil (test code=EOS) 1.6 % 0-7 Basophil (test code=BASO) 0.6 % 0-2 Neutro Abs (test code=ANEUT) 2.8 K/cumm 1.6-7.4 Lymph Abs (test code=ALYMPH) 0.8 K/cumm 0.5-4.6 Cooke Abs (test code=AMONO) 0.3 K/cumm 0.0-1.2 Eos Abs (test code=AEOS) 0.06 K/cumm 0.00-0.74 Baso Abs (test code=ABASO) 0.0 K/cumm 0.00-0.21 Hypochromic (test code=HYPO) Slight
[2018-04-13 11:10] VITALS: BP 142/83
--- NOTE | 2018-04-13 12:37 | Diagnostic Imaging Report ---
Terminated procedure - barium enema History: Cervical cancer, could not pass colonoscope past sigmoid colon. Findings/Impression: Portable Grinding Machine Operator radiograph demonstrates air filled colonic loops consistent with recent colonoscopy. No acute osseous abnormality. Attempt was made to cannulate the rectum for performance of barium enema, however resistance was encountered approximately 3 cm proximal to the anus and due to patient discomfort, the procedure was terminated. Above findings were discussed with Dr. Valentin on 04/13/18 at 1215 PM. May consider referral for CT colonography and potential placement of rectal tube with sedation. Signed by: Dr. Roberto Chavez MD on 04/13/2018 12:34 PM
== END | disposition home or self-care (01) ==
LOC: OR 08:27
PROVIDERS: ATTEND Internal Medicine Gastroenterology
DX: Z12.11 Encounter for screening for malignant neoplasm of colon (principal); D64.9 Anemia, unspecified; E11.9 Type 2 diabetes mellitus without complications; R01.1 Cardiac murmur, unspecified; Z01.810 Encounter for preprocedural cardiovascular examination; Z79.84 Long term (current) use of oral hypoglycemic drugs; Z68.32 Body mass index [BMI] 32.0-32.9, adult; Z85.41 Personal history of malignant neoplasm of cervix uteri
CPT/HCPCS: 36415; 45378; 82948; 93005; J2704